=== PATIENT | male | born 1990 | race Caucasian/White ===

== ENCOUNTER 2017-08-31 15:25 | Inpatient (IN) | payer OTHER ==
[2017-08-31 16:06] VITALS: BMI 27.3
--- NOTE | 2017-08-31 20:34 | HP ---
COWS - Scale Resting Pulse: 1= [place] 81-100 Sweatin=Flushed/Facial Moisture Restless Observation: 5= Unable to Sit Still Pupil Size: 1= Pupils >than Normal Bone or Joint Aches: 4=Acute Joint/Muscle Pain Runny Nose/ Eye Tearin= Nasal Congestion GI Upset > 30mins: 0= None Tremor Observation: 2= Slight Tremor Visible Yawning Observation: 0= None Anxiety or Irritability: 4=Extreme Anxiety Goose Flesh Skin: 0=Smooth Skin COWS Score: 20 Admission ROS S - HPI Chief Complaint: C/O WITHDRAWAL SX'S. SEEKING DETOX TXMENT Allergies/Adverse Reactions: Allergies Allergy/AdvReac Type Severity Reaction Status Date / Time haloperidol [From Haldol] Allergy Severe Difficulty Verified 08/31/17 16:32 Breathing haloperidol lactate Allergy Severe Difficulty Verified 08/31/17 16:32 [From Haldol] Breathing olanzapine [From Zyprexa] Allergy Severe Verified 08/31/17 17:03 Shellfish Allergy Severe Itching Verified 08/31/17 16:32 nicotine [From Nicoderm] Allergy Mild Itching Verified 08/31/17 16:32 Nicotine Patch Allergy Mild Itching Uncoded 08/31/17 16:32 History of Present Illness: 27 Y.O. MALE WITH OPIOID DEPENDENCE HERE FOR DETOX. CLIENT IS KNOWN TO THIS PROGRAM. REFERRED BY LEGAL. REPORTS LONGEST CLEAN TIME 1 YEAR. Exam Limitations: No Limitations - Ebola screening Have you traveled outside of the country in the last 21 days: No Have you had contact with anyone from an Ebola affected area: No Have you been sick,other than usual withdrawal symptoms: No Do you have a fever: No - Review of Systems Constitutional: Chills, Loss of Appetite, Malaise, Night Sweats, Changes in sleep EENT: reports: Nose Congestion, Dental Problems (UNDERBITE) Respiratory: reports: No Symptoms reported Cardiac: reports: No Symptoms Reported GI: reports: No Symptoms Reported : reports: No Symptoms Reported Musculoskeletal: reports: Back Pain Integumentary: reports: Lesions (TO LEGS) Neuro: reports: No Symptoms reported Endocrine: reports: No Symptoms Reported Hematology: reports: No Symptoms Reported Psychiatric: reports: Anxious, Depressed Other Systems: Reviewed and Negative Patient History - Patient Medical History Hx Anemia: No Hx Asthma: No Hx Chronic Obstructive Pulmonary Disease (COPD): No Hx Cancer: No Hx Cardiac Disorders: No Hx Congestive Heart Failure: No Hx Hypertension: No Hx Hypercholesterolemia: No Hx Pacemaker: No HX Cerebrovascular Accident: No Hx Seizures: No Hx Dementia: No Hx Diabetes: No Hx Gastrointestinal Disorders: No Hx Liver Disease: No Hx Genitourinary Disorders: No Hx Sexually Transmitted Disorders: No Hx Renal Disease (ESRD): No Hx Thyroid Disease: No Hx Human Immunodeficiency Virus (HIV): No Hx Hepatitis C: No Hx Depression: Yes (DENIES SI/HI) Hx Suicide Attempt: No Hx Bipolar Disorder: No Hx Schizophrenia: No Other Medical History: DENIES - Patient Surgical History Past Surgical History: No Hx Neurologic Surgery: No Hx Cataract Extraction: No Hx Cardiac Surgery: No Hx Lung Surgery: No Hx Breast Surgery: No Hx Breast Biopsy: No Hx Abdominal Surgery: No Hx Appendectomy: No Hx Cholecystectomy: No Hx Genitourinary Surgery: No Hx Section: No Hx Orthopedic Surgery: No Anesthesia Reaction: No - PPD History Previous Implant?: Yes Documented Results: Negative w/o proof Implanted On Prior [facility] Admission?: Yes Date: 03/03/13 PPD to be Administered?: Yes - Smoking Cessation Smoking history: Current every day smoker Have you smoked in the past 12 months: Yes Aproximately how many cigarettes per day: 20 Cigars Per Day: 0 Hx Chewing Tobacco Use: No Initiated information on smoking cessation: Yes 'Breaking Loose' booklet given: 08/31/17 - Substance & Tx. History Hx Alcohol Use: No Hx Substance Use: Yes Substance Use Type: Heroin Hx Substance Use Treatment: Yes ([facility]) - Substances Abused Heroin Route: Inhalation Frequency: Daily Amount used: 10 bags Age of first use: 20 Date of Last Use: 08/31/17 Marijuana/Hashish Route: Smoking Frequency: 1-2 times per week Amount used: 1 blunt Age of first use: 15 Date of Last Use: 08/24/17 Family Disease History - Family Disease History Family History: Denies Family Disease History: Heart Disease: Father, Other: Mother (ANXIETY, DEPRESSION) Admission Physical Exam BHS - Vital Signs Vital Signs: Vital Signs - 24 hr 08/31/17 15:50 Temperature 96.4 F L Pulse Rate 90 Respiratory 20 Rate Blood Pressure 139/79 - Physical General Appearance: Yes: Appropriately Dressed, Mild Distress, Tremorous, Anxious HEENTM: Yes: EOMI, Normocephalic, BART[place]O, Pharynx Normal, Nasal Congestion, Other (DIALTED PUPILS) Respiratory: Yes: Chest Non-Tender, Lungs Clear, Normal Breath Sounds, No Respiratory Distress, No Accessory Muscle Use Neck: Yes: No masses,lesions,Nodules, Supple, Trachea in good position Breast: Yes: Breast Exam Deferred Cardiology: Yes: Regular Rhythm, S1, S2, Tachycardia Abdominal: Yes: Normal Bowel Sounds, Non Tender, Soft Genitourinary: Yes: Within Normal Limits Back: Yes: Normal Inspection Musculoskeletal: Yes: full range of Motion, Gait Steady Extremities: Yes: Normal Capillary Refill, Normal Range of Motion, Non-Tender, Tremors Neurological: Yes: nurse sane II-XII NML intact, Fully Oriented, Alert, Motor Strength 5/5 Integumentary: Yes: Normal Color, Warm, Moist Lymphatic: Yes: Within Normal Limits - Diagnostic (1) Opioid dependence with withdrawal Current Visit: Yes Status: Chronic (2) Nicotine dependence Current Visit: Yes Status: Chronic Qualifiers: Nicotine product type: cigarettes Substance use status: uncomplicated Qualified Code(s): F17.210 - Nicotine dependence, cigarettes, uncomplicated Cleared for Admission [facility] - Detox or Rehab [facility] Level of Care: Medically Managed Detox Regimen/Protocol: Methadone [facility] Breath Alcohol Content Breath Alcohol Content: 0 Urine Drug Screen - Results Drug Screen Negative: No Urine Drug Screen Results: THC-Marijuana, OPI-Opiates, AMP-Amphetamines, MET- Methamphetamine, OXY-Oxycodone
[2017-08-31] MEDS ORDERED: P-EPHED 60MG/TRIPROLIDI 2.5MG TABLET PO PRN (20:41)
[2017-08-31] MEDS ORDERED: LOPERAMIDE HCL 2 MG CAPSULE PO PRN (20:41)
[2017-08-31] MEDS ORDERED: MAG HYDROX/AL HYDROX/SIMETH 30 ML UNIT-DOSE CUP PO PRN (20:41)
[2017-08-31] MEDS ORDERED: MAGNESIUM CITRATE 300 ML BOTTLE PO PRN (20:41)
[2017-08-31] MEDS ORDERED: guaiFENesin/D-METHORPHAN HB 10 ML UNIT-DOSE CUPS PO PRN (20:41)
[2017-08-31] MEDS ORDERED: MENTHOL/PHENOL 1 EACH UD MM PRN (20:41)
[2017-08-31] MEDS ORDERED: ACETAMINOPHEN 325 MG TABLET (FP) PO PRN (20:41)
[2017-08-31] MEDS ORDERED: METHADONE HCL 10 MG TABLET (FOR DETOX USE ONLY) PO ONE ×2 (20:41→23:00)
[2017-08-31] MEDS ORDERED: MAGNESIUM HYDROX 2400MG/30ML ORAL SUSPENSION 30 ML CUP PO PRN (20:41)
[2017-08-31] MEDS ORDERED: hydrOXYzine PAMOATE 50 MG CAPSULE (FP) PO PRN (20:41)
[2017-08-31] MEDS ORDERED: IBUPROFEN 400 MG TABLET (FP) PO PRN (20:41)
[2017-08-31] MEDS: THIAMINE HCL 100 MG TABLET (FP) PO SCH (21:53)
[2017-08-31] MEDS: diazePAM 5 MG TABLET PO PRN (21:54)
[2017-08-31] MEDS ORDERED: QUEtiapine FUMARATE 100 MG TABLET (FP) PO ONE (23:00)
[2017-09-01 03:53] LABS: URINE APPEARANCE CLEAR; URINE BILIRUBIN NEGATIVE (NEGATIVE); URINE BLOOD NEGATIVE (NEGATIVE); URINE COLOR YELLOW; URINE GLUCOSE (UA) NEGATIVE (NEGATIVE); URINE KETONE NEGATIVE (NEGATIVE); URINE LEUK ESTERASE NEGATIVE (NEGATIVE); URINE NITRITE NEGATIVE (NEGATIVE); URINE PROTEIN NEGATIVE (NEGATIVE); URINE UROBILINOGEN NEGATIVE mg/dL (0.2-1.0)
[2017-09-01] MEDS ORDERED: METHADONE HCL 10 MG TABLET (FOR DETOX USE ONLY) PO ONE (10:00)
[2017-09-01] MEDS: PRENATAL VITAMINS W/ FOLIC ACID TABLET (FP) PO SCH (10:01)
[2017-09-01] MEDS: diazePAM 5 MG TABLET PO PRN ×2 (10:01→22:11)
[2017-09-01 10:16] LABS: HEMATOCRIT 40.5 % (35.4-49); MCH 27.9 pg (25.7-33.7); MCHC 32.2 g/dl (32.0-35.9); MEAN CELL VOLUME 86.5 fl (80-96); MEAN PLT VOLUME 8.9 fl (7.5-11.1); PLATELET COUNT 236 K/MM3 (134-434); RBC 4.68 M/mm3 (4.00-5.60); RDW 14.9 % (11.9-15.9); WHITE BLOOD COUNT 13.5 K/mm3 (4.0-10.0)
[2017-09-01 10:22] LABS: CHLORIDE 102 mmol/L (98-107); POTASSIUM 3.5 mmol/L (3.5-5.1); SODIUM 138 mmol/L (136-145)
[2017-09-01 10:42] LABS: ALBUMIN 3.3 g/dl (3.4-5.0); ALK PHOS 90 U/L (45-117); ANION GAP 9 (8-16); BILIRUBIN,TOTAL 0.4 mg/dL (0.2-1.0); BLOOD UREA NITROGEN 14 mg/dL (7-18); CALCIUM 8.2 mg/dL (8.5-10.1); CO2 27 mmol/L (21-32); CREATININE 0.8 mg/dL (0.7-1.3); GLUCOSE,RANDOM 83 mg/dL (74-106); SGOT/AST 10 U/L (15-37); SGPT/ALT 16 U/L (12-78); TOT PROT 6.2 g/dl (6.4-8.2)
--- NOTE | 2017-09-01 11:26 | EKG ---
Test Reason : Blood Pressure : / mmHG Vent. Rate : 077 BPM Atrial Rate : 077 BPM P-R Int : 128 ms QRS Dur : 086 ms QT Int : 398 ms P-R-T Axes : 051 040 053 degrees QTc Int : 450 ms NORMAL SINUS RHYTHM NORMAL ECG NO PREVIOUS ECGS AVAILABLE BASELINE ARTIFACT Confirmed by RIOS TALBERT, DAVI ([id number]) on 09/01/2017 11:26:19 AM Referred By: Confirmed By:DAVI NATION MD
[2017-09-01] MEDS ORDERED: FLU VACCINE QUAD 60 MCG/0.5 ML (MDV 17-18) IM ONE (12:00)
[2017-09-01] MEDS: BACITRACIN 15 GM TUBE TOPICAL OINTMENT TP SCH ×2 (12:59→22:12)
--- NOTE | 2017-09-01 13:50 | CONSULT ---
[facility] Psychiatric Consult - Data Date of interview: 09/01/17 Admission source: [facility] Identifying data: Readmission to [facility] for this 27 y/o male seeking detox treatment on for heroin and marihuana dependence.Patient is single without chidren,domiciled (lives with his mother),unemployed and supported on SSI benefits. Substance Abuse History: Confirmed by patient in this session.Refer to current [facility] report for details : Smoking history: Current every day smoker. Have you smoked in the past 12 months: Yes. Aproximately how many cigarettes per day: 20. Cigars Per Day: 0. Hx Chewing Tobacco Use: No. Initiated information on smoking cessation: Yes. 'Breaking Loose' booklet given: 08/31/17. - Substance & Tx. History. Hx Alcohol Use: No. Hx Substance Use: Yes. Substance Use Type : Heroin. Hx Substance Use Treatment: Yes ([facility]). - Substances Abused. Heroin. Route: Inhalation. Frequency: Daily. Amount used: 10 bags. Age of first use: 20. Date of Last Use: 08/31/17. Marijuana/Hashish. Route: Smoking. Frequency: 1-2 times per week. Amount used: 1 blunt. Age of first use: 15. Date of Last Use: 08/24/17 Medical History: Patient endorses good general health. Psychiatric History: Patient admits to a history of multiple psychiatric hospitalizations since adolescence.Diagnosed with KURT,ADD and Schizoaffective Disorder as per self-report.Known to [facility] and [facility].Mr Puentes informs that he is currently followed at [facility] in [facility].Reportedly prescribed a combination of adderall,clonazepam,depakote,seroquel and enderal ( doses not recalled).Patient indicates also that he gets a monthly injection of invega (date of last injection : unknown).No reported history of suicide attempts. Physical/Sexual Abuse/Trauma History: Patient denies. Additional Comment: Urine Drug Screen Results: THC-Marijuana, OPI-Opiates, AMP- Amphetamines, MET-Methamphetamine, OXY-Oxycodone.Noted. Mental Status Exam - Mental Status Exam Alert and Oriented to: Time, Place, Person Cognitive Function: Good Patient Appearance: Well Groomed Mood: Withdrawn, Hopeful Affect: Appropriate, Normal Range Patient Behavior: Fatigued, Cooperative Speech Pattern: Clear, Appropriate Voice Loudness: Normal Thought Process: Goal Oriented Thought Disorder: Not Present Hallucinations: Denies Suicidal Ideation: Denies Homicidal Ideation: Denies Insight/Judgement: Poor Sleep: Poorly, Difficulty falling asleep Appetite: Good Muscle strength/Tone: Normal Gait/Station: Normal Psychiatric Findings - Problem List ([place] 1, 2,3) (1) Opioid dependence with withdrawal Current Visit: Yes Status: Acute (2) Nicotine dependence Current Visit: Yes Status: Acute Qualifiers: Nicotine product type: cigarettes Substance use status: uncomplicated Qualified Code(s): F17.210 - Nicotine dependence, cigarettes, uncomplicated (3) Schizoaffective disorder Current Visit: No Status: Chronic Comment: Self-report.Questionable adherence to medications.Limited historian.Followed at [facility] in [facility]. (4) ADD (attention deficit disorder) Current Visit: Yes Status: Chronic Comment: As per self-report. (5) Insomnia Current Visit: Yes Status: Active - Initial Treatment Plan Initial Treatment Plan: Psychoeducation.Support.Detoxification in progress.Sleep hygiene discussed.Psychostimulant medication held (to be resumed after discharge from this service).Seroquel 100 mg po hs.Side effects/benefits discussed with the patient.He expressed his agreement with this careplan.Observation.Medications checked via survey of recent pharmacy claims : no recent scripts for depakote (last refill was issued on 06/08/17) ; confirmed refills for amphetamine ER 30 mg/day + enderal 10 mg po bid + seroquel 100 mg/ hs on 08/21/17 at [facility].
--- NOTE | 2017-09-01 14:40 | PN ---
BHS COWS - Scale Resting Pulse: 0= [place] 80 or Below Sweatin= Chills/Flushing Restless Observation: 1= Difficult to Sit Still Pupil Size: 0= Normal to Room Light Bone or Joint Aches: 2= Severe Diffuse Aches Runny Nose/ Eye Tearin= None GI Upset > 30mins: 0= None Tremor Observation of Outstretched Hands: 2= Slight Tremor Visible Yawning Observation: 1= 1-2x During Session Anxiety or Irritability: 2=Irritable/Anxious Goose Flesh Skin: 3=Piloerection COWS Score: 12 BHS Progress Note (SOAP) Subjective: Anxious, Tremors, Fatigue, Constipation. Patient reporting small lesion on lower abdomen X approx. 1 week. Patient reports that area feels itchy and that he has "squeezed pus and blood from it." Objective: PT. A & O X 3, OBSERVED AMBULATING ON UNIT. NO ACUTE DISTRESS. SMALL AREA OF DARKENED SKIN DISCOLORATION NOTED ON LOWER ABDOMEN. NO SWELLING, ERYTHEMA, BLEEDING OR UNUSUAL DISCHARGE NOTED AT SITE. 09/01/17 14:36 Vital Signs Temperature 97.3 F L 09/01/17 13:52 Pulse Rate 77 09/01/17 13:52 Respiratory Rate 19 09/01/17 13:52 Blood Pressure 109/57 09/01/17 13:52 O2 Sat by Pulse Oximetry (%) Laboratory Tests 08/31/17 09/01/17 09/01/17 23:33 08:00 08:00 WBC 13.5 H D RBC 4.68 Hgb 13.0 Hct 40.5 MCV 86.5 MCH 27.9 MCHC 32.2 RDW 14.9 Plt Count 236 D MPV 8.9 Sodium 138 Potassium 3.5 Chloride 102 Carbon Dioxide 27 Anion Gap 9 BUN 14 Creatinine 0.8 Creat Clearance w eGFR > 60 Random Glucose 83 Calcium 8.2 L Total Bilirubin 0.4 AST 10 L D ALT 16 Alkaline Phosphatase 90 Total Protein 6.2 L Albumin 3.3 L Urine Color Yellow Urine Appearance Clear Urine pH 5.0 Ur Specific [place] 1.026 Urine Protein Negative Urine Glucose (UA) Negative Urine Ketones Negative Urine Blood Negative Urine Nitrite Negative Urine Bilirubin Negative Urine Urobilinogen Negative Ur Leukocyte Esterase Negative RPR Titer 09/01/17 08:00 WBC RBC Hgb Hct MCV MCH MCHC RDW Plt Count MPV Sodium Potassium Chloride Carbon Dioxide Anion Gap BUN Creatinine Creat Clearance w eGFR Random Glucose Calcium Total Bilirubin AST ALT Alkaline Phosphatase Total Protein Albumin Urine Color Urine Appearance Urine pH Ur Specific [place] Urine Protein Urine Glucose (UA) Urine Ketones Urine Blood Urine Nitrite Urine Bilirubin Urine Urobilinogen Ur Leukocyte Esterase RPR Titer Nonreactive LABS NOTED. HCV AB RESULT PENDING. 09/01/17 14:38 Assessment: 09/01/17 14:39 WITHDRAWAL SYMPTOMS. Plan: CONTINUE DETOX. BACITRACIN TO BE APPLIED TO AFFECTED AREA ON LOWER ABDOMEN BID. PATIENT ADVISED TO AVOID TOUCHING AREA MUCH POSSIBLE FOR THE TIME BEING. INCREASE DAILY PO FLUID INTAKE.
[2017-09-01] MEDS: THIAMINE HCL 100 MG TABLET (FP) PO SCH (22:10)
[2017-09-01] MEDS: QUEtiapine FUMARATE 100 MG TABLET (FP) PO SCH (22:12)
[2017-09-02] MEDS ORDERED: METHADONE HCL 5 MG TABLET (FOR DETOX USE ONLY) PO ONE (10:00)
[2017-09-02] MEDS: diazePAM 5 MG TABLET PO PRN ×2 (10:23→22:15)
[2017-09-02] MEDS: PRENATAL VITAMINS W/ FOLIC ACID TABLET (FP) PO SCH (10:23)
[2017-09-02] MEDS: BACITRACIN 15 GM TUBE TOPICAL OINTMENT TP SCH ×2 (10:28→22:12)
--- NOTE | 2017-09-02 14:22 | PN ---
BHS COWS - Scale Resting Pulse: 0= [place] 80 or Below Sweatin= Beads of Sweat on Face Restless Observation: 3= Extraneous Movement Pupil Size: 0= Normal to Room Light Bone or Joint Aches: 2= Severe Diffuse Aches Runny Nose/ Eye Tearin= Runny Nose/Eyes GI Upset > 30mins: 1= Stomach Cramp Tremor Observation of Outstretched Hands: 2= Slight Tremor Visible Yawning Observation: 1= 1-2x During Session Anxiety or Irritability: 2=Irritable/Anxious Goose Flesh Skin: 0=Smooth Skin COWS Score: 16 BHS Progress Note (SOAP) Subjective: Back pain, headache, chills, constipated (last bm 2 days ago, patient instructed to notify nurse) Objective: 09/02/17 14:12 Last Vital Signs Temp Pulse Resp BP Pulse Ox 97.8 F 72 18 111/60 09/02/17 13:20 09/02/17 13:20 09/02/17 13:20 09/02/17 13:20 Laboratory Tests 08/31/17 09/01/17 09/01/17 23:33 08:00 08:00 WBC 13.5 H D RBC 4.68 Hgb 13.0 Hct 40.5 MCV 86.5 MCH 27.9 MCHC 32.2 RDW 14.9 Plt Count 236 D MPV 8.9 Sodium Potassium Chloride Carbon Dioxide Anion Gap BUN Creatinine Creat Clearance w eGFR Random Glucose Calcium Total Bilirubin AST ALT Alkaline Phosphatase Total Protein Albumin Urine Color Yellow Urine Appearance Clear Urine pH 5.0 Ur Specific [place] 1.026 Urine Protein Negative Urine Glucose (UA) Negative Urine Ketones Negative Urine Blood Negative Urine Nitrite Negative Urine Bilirubin Negative Urine Urobilinogen Negative Ur Leukocyte Esterase Negative Valproic Acid RPR Titer Hepatitis C Antibody 0.2 09/01/17 09/01/17 09/02/17 08:00 08:00 07:45 WBC RBC Hgb Hct MCV MCH MCHC RDW Plt Count MPV Sodium 138 Potassium 3.5 Chloride 102 Carbon Dioxide 27 Anion Gap 9 BUN 14 Creatinine 0.8 Creat Clearance w eGFR > 60 Random Glucose 83 Calcium 8.2 L Total Bilirubin 0.4 AST 10 L D ALT 16 Alkaline Phosphatase 90 Total Protein 6.2 L Albumin 3.3 L Urine Color Urine Appearance Urine pH Ur Specific [place] Urine Protein Urine Glucose (UA) Urine Ketones Urine Blood Urine Nitrite Urine Bilirubin Urine Urobilinogen Ur Leukocyte Esterase Valproic Acid 3.383 L RPR Titer Nonreactive Hepatitis C Antibody Labs noted: wbc 13.5 Assessment: 09/02/17 14:22 Withdrawal symptoms Noted with leukocytosis Plan: Continue detox Encouraged to drink lots of water Leukocytosis, acute: asymptomatic for infection, repeat CBC
[2017-09-02] MEDS: THIAMINE HCL 100 MG TABLET (FP) PO SCH (22:12)
[2017-09-02] MEDS: QUEtiapine FUMARATE 100 MG TABLET (FP) PO SCH (22:13)
[2017-09-03] MEDS: BACITRACIN 15 GM TUBE TOPICAL OINTMENT TP SCH (09:41)
[2017-09-03] MEDS: PRENATAL VITAMINS W/ FOLIC ACID TABLET (FP) PO SCH (09:41)
[2017-09-03] MEDS: diazePAM 5 MG TABLET PO PRN (09:41)
[2017-09-03] MEDS ORDERED: METHADONE HCL 5 MG TABLET (FOR DETOX USE ONLY) PO ONE (10:00)
[2017-09-03 12:03] LABS: BASO % 0.5 % (0-2.0); EOS % 3.8 % (0-4.5); HEMATOCRIT 41.4 % (35.4-49); HEMOGLOBIN 13.3 GM/dL (11.7-16.9); LYMPH % 30.7 % (8-40); MCHC 32.3 g/dl (32.0-35.9); MEAN CELL VOLUME 86.9 fl (80-96); MEAN PLT VOLUME 8.9 fl (7.5-11.1); MONO % 10.3 % (3.8-10.2); NEUT % 54.7 % (42.8-82.8); PLATELET COUNT 227 K/MM3 (134-434); RBC 4.76 M/mm3 (4.00-5.60); RDW 14.6 % (11.9-15.9); WHITE BLOOD COUNT 8.9 K/mm3 (4.0-10.0)
--- NOTE | 2017-09-03 13:31 | DS ---
[facility] Detox Discharge Summary Admission Date: 08/31/17 Discharge Date: 09/03/17 - History Present History: Opioid Dependence Additional Comments: DECLINED TO COMPLETE DETOX. STATES HE WANTS TO BE WITH HIS FAMILY. Pertinent Past History: ADHD HX - Physical Exam Results Vital Signs: Vital Signs Temperature 97.5 F L 09/03/17 09:27 Pulse Rate 75 09/03/17 09:27 Respiratory Rate 18 09/03/17 09:27 Blood Pressure 99/58 09/03/17 09:27 O2 Sat by Pulse Oximetry (%) Pertinent Admission Physical Exam Findings: WITHDRAWAL SX Laboratory Last Values WBC 8.9 K/mm3 (4.0-10.0) D 09/03/17 07:50 RBC 4.76 M/mm3 (4.00-5.60) 09/03/17 07:50 Hgb 13.3 GM/dL (11.7-16.9) 09/03/17 07:50 Hct 41.4 % (35.4-49) 09/03/17 07:50 MCV 86.9 fl (80-96) 09/03/17 07:50 MCH 28.0 pg (25.7-33.7) 09/03/17 07:50 MCHC 32.3 g/dl (32.0-35.9) 09/03/17 07:50 RDW 14.6 % (11.9-15.9) 09/03/17 07:50 Plt Count 227 K/MM3 (134-434) 09/03/17 07:50 MPV 8.9 fl (7.5-11.1) 09/03/17 07:50 Neutrophils % 54.7 % (42.8-82.8) 09/03/17 07:50 Lymphocytes % 30.7 % (8-40) 09/03/17 07:50 Monocytes % 10.3 % (3.8-10.2) H 09/03/17 07:50 Eosinophils % 3.8 % (0-4.5) 09/03/17 07:50 Basophils % 0.5 % (0-2.0) 09/03/17 07:50 Sodium 138 mmol/L (136-145) 09/01/17 08:00 Potassium 3.5 mmol/L (3.5-5.1) 09/01/17 08:00 Chloride 102 mmol/L (98-107) 09/01/17 08:00 Carbon Dioxide 27 mmol/L (21-32) 09/01/17 08:00 Anion Gap 9 (8-16) 09/01/17 08:00 BUN 14 mg/dL (7-18) 09/01/17 08:00 Creatinine 0.8 mg/dL (0.7-1.3) 09/01/17 08:00 Creat Clearance w eGFR > 60 (>60) 09/01/17 08:00 Random Glucose 83 mg/dL (74-106) 09/01/17 08:00 Calcium 8.2 mg/dL (8.5-10.1) L 09/01/17 08:00 Total Bilirubin 0.4 mg/dL (0.2-1.0) 09/01/17 08:00 AST 10 U/L (15-37) L D 09/01/17 08:00 ALT 16 U/L (12-78) 09/01/17 08:00 Alkaline Phosphatase 90 U/L (45-117) 09/01/17 08:00 Total Protein 6.2 g/dl (6.4-8.2) L 09/01/17 08:00 Albumin 3.3 g/dl (3.4-5.0) L 09/01/17 08:00 Urine Color Yellow 08/31/17 23:33 Urine Appearance Clear 08/31/17 23:33 Urine pH 5.0 (5.0-8.0) 08/31/17 23:33 Ur Specific [place] 1.026 (1.001-1.035) 08/31/17 23: Urine Protein Negative (NEGATIVE) 08/31/17 23:33 Urine Glucose (UA) Negative (NEGATIVE) 08/31/17 23:33 Urine Ketones Negative (NEGATIVE) 08/31/17 23: Urine Blood Negative (NEGATIVE) 08/31/17 23: Urine Nitrite Negative (NEGATIVE) 08/31/17 23: Urine Bilirubin Negative (NEGATIVE) 08/31/17 23: Urine Urobilinogen Negative mg/dL (0.2-1.0) 08/31/17 23: Ur Leukocyte Esterase Negative (NEGATIVE) 08/31/17 23: Valproic Acid 3.383 ug/ml (50-100) L 09/02/17 07:45 RPR Titer Nonreactive (NONREACTIVE) 09/01/17 08:00 Hepatitis C Antibody 0.2 s/co ratio (0.0-0.9) 09/01/17 08:00 - Treatment Hospital Course: Discharged Condition Good - Medication Discharge Medications: Ambulatory Orders Clonazepam [Klonopin] 1 mg PO DAILY 10/03/11 Dextroamphetamine/Amphetamine [Adderall Xr 30 mg Capsule] 30 mg PO DAILY Propranolol HCl 10 mg PO BID 08/31/17 Quetiapine Fumarate [Seroquel -] 200 mg PO BID 08/31/17 - Diagnosis (1) Opioid dependence with withdrawal Status: Acute (2) Nicotine dependence Status: Acute Qualifiers: Nicotine product type: cigarettes Substance use status: in withdrawal Qualified Code(s): F17.213 - Nicotine dependence, cigarettes, with withdrawal (3) Cannabis dependence Status: Acute - AMA Did Patient Leave Against Medical Advice: Yes (AMA)
[2017-09-03 13:51] VITALS: BP 110/65; PULSE 66; TEMP 97.4
[2017-09-04] MEDS ORDERED: METHADONE HCL 10 MG TABLET (FOR DETOX USE ONLY) PO ONE (10:00)
[2017-09-05] MEDS ORDERED: METHADONE HCL 5 MG TABLET (FOR DETOX USE ONLY) PO ONE (06:00)
== END 2017-09-03 14:00 | disposition left against medical advice (07) | DRG 770 ==
LOC: YASAS 15:25 → Y3N 17:54
PROVIDERS: ADMIT Internal Medicine; ATTEND Internal Medicine
PROC: HZ2ZZZZ Detoxification Services for Substance Abuse Treatment (ICD-10-PCS; principal; 2017-08-31)
DX: F11.23 Opioid dependence with withdrawal (principal); F12.20 Cannabis dependence, uncomplicated; F17.210 Nicotine dependence, cigarettes, uncomplicated; F32.9 Major depressive disorder, single episode, unspecified; F25.9 Schizoaffective disorder, unspecified; F90.9 Attention-deficit hyperactivity disorder, unspecified type; R00.0 Tachycardia, unspecified; L98.9 Disorder of the skin and subcutaneous tissue, unspecified; G47.00 Insomnia, unspecified; Z88.8 Allergy status to other drugs, medicaments and biological substances; Z91.013 Allergy to seafood
CPT/HCPCS: 36415; 80053; 80164; 81003; 85025; 85027; 86593; 86803; 90688; 93005; 93010; G0008

== ENCOUNTER 2017-10-25 12:37 | Inpatient (IN) | payer OTHER ==
[2017-10-25 16:58] VITALS: BMI 26.9
--- NOTE | 2017-10-25 17:42 | HP ---
COWS - Scale Resting Pulse: 1= [place] 81-100 Sweatin=Flushed/Facial Moisture Restless Observation: 3= Extraneous Movement Pupil Size: 1= Pupils >than Normal Bone or Joint Aches: 1= Mild Discomfort Runny Nose/ Eye Tearin= Runny Nose/Eyes GI Upset > 30mins: 3= Vomiting/Diarrhea Tremor Observation: 2= Slight Tremor Visible Yawning Observation: 1= 1-2x During Session Anxiety or Irritability: 1=Feels Anxious/Irritable Goose Flesh Skin: 3=Piloerection COWS Score: 20 Admission ROS S - HPI Chief Complaint: "I don't feel well from the Dope, even if I use it I still dont feel well , I am here to detox. Everything is going down hill." Allergies/Adverse Reactions: Allergies Allergy/AdvReac Type Severity Reaction Status Date / Time haloperidol [From Haldol] Allergy Severe Difficulty Verified 08/31/17 16:32 Breathing haloperidol lactate Allergy Severe Difficulty Verified 08/31/17 16:32 [From Haldol] Breathing olanzapine [From Zyprexa] Allergy Severe Verified 08/31/17 17:03 Shellfish Allergy Severe Itching Verified 08/31/17 16:32 nicotine [From Nicoderm] Allergy Mild Itching Verified 08/31/17 16:32 Nicotine Patch Allergy Mild Itching Uncoded 08/31/17 16:32 History of Present Illness: 27 yo male with hx of heroin, marijuana and nicotine dependence is here seeking detox. Past medical hx : schizo-affective d/o, denies any other significant healht hx. Denies suicidal / homicidal ideation or suicide attempts. Last detox 08/31/17 -09/03/2017 at [facility]. Denies any significant period of sobriety. Reports hx of OD in the past unable specify date and admitted to the ICU. Denies any seizures, - Ebola screening Have you traveled outside of the country in the last 21 days: No Have you had contact with anyone from an Ebola affected area: No Have you been sick,other than usual withdrawal symptoms: No Do you have a fever: No - Review of Systems Constitutional: Chills, Loss of Appetite, Changes in sleep, Weakness, Unintentional Wgt. Loss (loss 20lbs) EENT: reports: Nose Congestion Respiratory: reports: No Symptoms reported Cardiac: reports: No Symptoms Reported GI: reports: Diarrhea, Nausea, Poor Appetite, Poor Fluid Intake, Vomiting : reports: No Symptoms Reported Musculoskeletal: reports: Back Pain, Joint Pain Integumentary: reports: Pruritus Endocrine: reports: Change in Weight Hematology: reports: No Symptoms Reported Psychiatric: reports: Orientated x3, Anxious Other Systems: Reviewed and Negative Patient History - Patient Medical History Hx Anemia: No Hx Asthma: No Hx Chronic Obstructive Pulmonary Disease (COPD): No Hx Cancer: No Hx Cardiac Disorders: No Hx Congestive Heart Failure: No Hx Hypertension: No Hx Hypercholesterolemia: No Hx Pacemaker: No HX Cerebrovascular Accident: No Hx Seizures: No Hx Dementia: No Hx Diabetes: No Hx Gastrointestinal Disorders: No Hx Liver Disease: No Hx Genitourinary Disorders: No Hx Sexually Transmitted Disorders: No Hx Renal Disease (ESRD): No Hx Thyroid Disease: No Hx Human Immunodeficiency Virus (HIV): No Hx Hepatitis C: No Hx Depression: Yes (DENIES SI/HI) Hx Suicide Attempt: No Hx Bipolar Disorder: No Hx Schizophrenia: No - Patient Surgical History Past Surgical History: No Hx Neurologic Surgery: No Hx Cataract Extraction: No Hx Cardiac Surgery: No Hx Lung Surgery: No Hx Breast Surgery: No Hx Breast Biopsy: No Hx Abdominal Surgery: No Hx Appendectomy: No Hx Cholecystectomy: No Hx Genitourinary Surgery: No Hx Section: No Hx Orthopedic Surgery: No Anesthesia Reaction: No - PPD History Previous Implant?: Yes Documented Results: Negative w/proof Date: 09/02/17 PPD to be Administered?: No - Reproductive History Patient is a Female of Child Bearing Age (11 -55 yrs old): No - Smoking Cessation Smoking history: Current every day smoker Have you smoked in the past 12 months: Yes Aproximately how many cigarettes per day: 20 Cigars Per Day: 0 Hx Chewing Tobacco Use: No Initiated information on smoking cessation: Yes 'Breaking Loose' booklet given: 10/25/17 - Substance & Tx. History Hx Alcohol Use: No Hx Substance Use: Yes Substance Use Type: Heroin, Marijuana Hx Substance Use Treatment: Yes ([facility] 08/31/17 - 09/03/17) - Substances Abused Heroin Route: Inhalation Frequency: Daily Amount used: 1 .5 bundles Age of first use: 25 Date of Last Use: 10/25/17 Family Disease History - Family Disease History Family Disease History: Heart Disease: Father, Other: Mother (ANXIETY, DEPRESSION) Admission Physical Exam [facility] - Vital Signs Vital Signs: Vital Signs - 24 hr 10/25/17 16:57 Temperature 96.8 F L Pulse Rate 84 Respiratory 18 Rate Blood Pressure 122/70 - Physical General Appearance: Yes: Mild Distress, Anxious HEENTM: Yes: EOMI, Hearing grossly Normal, Normal ENT Inspection, Normocephalic , Normal Voice, BARTOLO, Pharynx Normal, Tm's normal Respiratory: Yes: Within Normal Limits, Chest Non-Tender, Lungs Clear, Normal Breath Sounds, No Respiratory Distress, No Accessory Muscle Use Neck: Yes: No masses,lesions,Nodules, Trachea in good position Breast: Yes: Within Normal Limits, Axillae without masses, Breasts Symetrical, No Discharge, No masses Cardiology: Yes: Within Normal Limits, Regular Rhythm, Regular Rate, S1, S2 Abdominal: Yes: Normal Bowel Sounds, Non Tender Genitourinary: Yes: Within Normal Limits Back: Yes: Normal Inspection Musculoskeletal: Yes: full range of Motion, Gait Steady, Pelvis Stable Extremities: Yes: Normal Capillary Refill, Normal Inspection 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, Fully Oriented, Alert, Motor Strength 5/5, Normal Mood/Affect, Normal Response Integumentary: Yes: Normal Color, Dry, Warm Lymphatic: Yes: Within Normal Limits - Diagnostic (1) Nicotine dependence Current Visit: Yes Status: Acute Qualifiers: Nicotine product type: cigarettes Substance use status: in withdrawal Qualified Code(s): F17.213 - Nicotine dependence, cigarettes, with withdrawal (2) Opioid dependence with withdrawal Current Visit: Yes Status: Acute (3) ADD (attention deficit disorder) Current Visit: No Status: Chronic Qualifiers: Hyperactivity presence: unspecified Qualified Code(s): F98.8 - Other specified behavioral and emotional disorders with onset usually occurring in childhood and adolescence Comment: As per self-report. (4) Difficulty sleeping Current Visit: Yes Status: Acute [facility] Breath Alcohol Content Breath Alcohol Content: 0 Urine Drug Screen - Results Drug Screen Negative: No Urine Drug Screen Results: OPI-Opiates, AMP-Amphetamines, MET-Methamphetamine, TCA-Tricyclic Antidepress, OXY-Oxycodone
[2017-10-25] MEDS ORDERED: ACETAMINOPHEN 325 MG TABLET (FP) PO PRN (18:04)
[2017-10-25] MEDS ORDERED: MAG HYDROX/AL HYDROX/SIMETH 30 ML UNIT-DOSE CUP PO PRN (18:04)
[2017-10-25] MEDS ORDERED: MAGNESIUM CITRATE 300 ML BOTTLE PO PRN (18:04)
[2017-10-25] MEDS ORDERED: hydrOXYzine PAMOATE 50 MG CAPSULE (FP) PO PRN (18:04)
[2017-10-25] MEDS ORDERED: MAGNESIUM HYDROX 2400MG/30ML ORAL SUSPENSION 30 ML CUP PO PRN (18:04)
[2017-10-25] MEDS ORDERED: LOPERAMIDE HCL 2 MG CAPSULE PO PRN (18:04)
[2017-10-25] MEDS ORDERED: MENTHOL/PHENOL 1 EACH UD MM PRN (18:04)
[2017-10-25] MEDS ORDERED: P-EPHED 60MG/TRIPROLIDI 2.5MG TABLET PO PRN (18:04)
[2017-10-25] MEDS ORDERED: IBUPROFEN 400 MG TABLET (FP) PO PRN (18:04)
[2017-10-25] MEDS ORDERED: guaiFENesin/D-METHORPHAN HB 10 ML UNIT-DOSE CUPS PO PRN (18:04)
[2017-10-25] MEDS: diazePAM 5 MG TABLET PO PRN (19:51)
[2017-10-25] MEDS ORDERED: METHADONE HCL 10 MG TABLET (FOR DETOX USE ONLY) PO ONE ×2 (20:00→23:00)
[2017-10-25] MEDS: THIAMINE HCL 100 MG TABLET (FP) PO SCH (22:36)
[2017-10-25 22:49] LABS: URINE APPEARANCE CLEAR; URINE BILIRUBIN NEGATIVE (NEGATIVE); URINE BLOOD NEGATIVE (NEGATIVE); URINE COLOR LTYELLOW; URINE GLUCOSE (UA) NEGATIVE (NEGATIVE); URINE KETONE NEGATIVE (NEGATIVE); URINE LEUK ESTERASE NEGATIVE (NEGATIVE); URINE NITRITE NEGATIVE (NEGATIVE); URINE PROTEIN NEGATIVE (NEGATIVE); URINE UROBILINOGEN NEGATIVE mg/dL (0.2-1.0)
[2017-10-26] MEDS: diazePAM 5 MG TABLET PO PRN ×2 (09:45→22:29)
[2017-10-26] MEDS: PRENATAL VITAMINS W/ FOLIC ACID TABLET (FP) PO SCH (09:47)
[2017-10-26] MEDS ORDERED: METHADONE HCL 10 MG TABLET (FOR DETOX USE ONLY) PO ONE (10:00)
[2017-10-26 10:27] LABS: HEMATOCRIT 41.2 % (35.4-49); HEMOGLOBIN 13.5 GM/dL (11.7-16.9); MCH 27.9 pg (25.7-33.7); MCHC 32.7 g/dl (32.0-35.9); MEAN CELL VOLUME 85.3 fl (80-96); MEAN PLT VOLUME 8.8 fl (7.5-11.1); PLATELET COUNT 264 K/MM3 (134-434); RBC 4.83 M/mm3 (4.00-5.60); RDW 13.8 % (11.9-15.9); WHITE BLOOD COUNT 7.9 K/mm3 (4.0-10.0)
[2017-10-26 10:33] LABS: BLOOD UREA NITROGEN 10 mg/dL (7-18); CHLORIDE 103 mmol/L (98-107); POTASSIUM 3.9 mmol/L (3.5-5.1); SODIUM 141 mmol/L (136-145)
[2017-10-26 10:59] LABS: ALBUMIN 3.1 g/dl (3.4-5.0); ALK PHOS 103 U/L (45-117); ANION GAP 11 (8-16); BILIRUBIN,TOTAL 0.4 mg/dL (0.2-1.0); CALCIUM 8.8 mg/dL (8.5-10.1); CO2 27 mmol/L (21-32); CREATININE 0.7 mg/dL (0.7-1.3); GLUCOSE,RANDOM 81 mg/dL (74-106); SGOT/AST 11 U/L (15-37); SGPT/ALT 16 U/L (12-78)
[2017-10-26] MEDS ORDERED: PNEUMOC 13-VAL CONJ-DIP CRM/PF 0.5 ML DISP.SYRIN IM ONE (12:00)
[2017-10-26] MEDS ORDERED: PNEUMOCOCCAL 23 VACCINE 0.5 ML VIAL IM ONE (12:00)
--- NOTE | 2017-10-26 14:01 | PN ---
[facility] COWS - Scale Resting Pulse: 0= [place] 80 or Below Sweatin= Chills/Flushing Restless Observation: 1= Difficult to Sit Still Pupil Size: 0= Normal to Room Light Bone or Joint Aches: 2= Severe Diffuse Aches Runny Nose/ Eye Tearin= Nasal Congestion GI Upset > 30mins: 0= None Tremor Observation of Outstretched Hands: 2= Slight Tremor Visible Yawning Observation: 1= 1-2x During Session Anxiety or Irritability: 2=Irritable/Anxious Goose Flesh Skin: 3=Piloerection COWS Score: 13 BHS Progress Note (SOAP) Subjective: Tremors, Anxious, Body Aches, Sweating. Objective: PT. A & O X 2 (UNCERTAIN ABOUT CURRENT DAY / DATE). OBSERVED AMBULATING ON UNIT. NO ACUTE DISTRESS. 10/26/17 13:54 Vital Signs Temperature 96.1 F L 10/26/17 13:49 Pulse Rate 73 10/26/17 13:49 Respiratory Rate 20 10/26/17 13:49 Blood Pressure 124/70 10/26/17 13:49 O2 Sat by Pulse Oximetry (%) Laboratory Tests 10/25/17 10/26/17 10/26/17 Unknown 07:40 07:40 WBC 7.9 RBC 4.83 Hgb 13.5 Hct 41.2 MCV 85.3 MCH 27.9 MCHC 32.7 RDW 13.8 Plt Count 264 MPV 8.8 Sodium 141 Potassium 3.9 Chloride 103 Carbon Dioxide 27 Anion Gap 11 BUN 10 D Creatinine 0.7 Creat Clearance w eGFR > 60 Random Glucose 81 Calcium 8.8 Total Bilirubin 0.4 AST 11 L ALT 16 Alkaline Phosphatase 103 Total Protein 6.0 L Albumin 3.1 L Urine Color Ltyellow Urine Appearance Clear Urine pH 5.0 Ur Specific [place] 1.012 Urine Protein Negative Urine Glucose (UA) Negative Urine Ketones Negative Urine Blood Negative Urine Nitrite Negative Urine Bilirubin Negative Urine Urobilinogen Negative Ur Leukocyte Esterase Negative RPR Titer HIV 1&2 Antibody Screen HIV P24 Antigen 10/26/17 10/26/17 07:40 07:40 WBC RBC Hgb Hct MCV MCH MCHC RDW Plt Count MPV Sodium Potassium Chloride Carbon Dioxide Anion Gap BUN Creatinine Creat Clearance w eGFR Random Glucose Calcium Total Bilirubin AST ALT Alkaline Phosphatase Total Protein Albumin Urine Color Urine Appearance Urine pH Ur Specific [place] Urine Protein Urine Glucose (UA) Urine Ketones Urine Blood Urine Nitrite Urine Bilirubin Urine Urobilinogen Ur Leukocyte Esterase RPR Titer Nonreactive HIV 1&2 Antibody Screen Negative HIV P24 Antigen Negative LABS NOTED. Assessment: 10/26/17 13:55 WITHDRAWAL SYMPTOMS. Plan: CONTINUE DETOX.
--- NOTE | 2017-10-26 15:23 | CONSULT ---
[facility] Psychiatric Consult - Data Date of interview: 10/26/17 Admission source: [facility] Identifying data: This is another admission to [facility] for this 27 y/o male seeking detox treatment on for heroin,and marihuana dependence.Patient is single without children,domiciled (lives with his mother), unemployed and supported on SSI benefits. Substance Abuse History: Confirmed by patient in this interview.Refer to current [facility] report for details. Smoking history: Current every day smoker. Have you smoked in the past 12 months: Yes. Aproximately how many cigarettes per day: 20. Cigars Per Day: 0. Hx Chewing Tobacco Use: No. Initiated information on smoking cessation: Yes. 'Breaking Loose' booklet given: . - Substance & Tx. History. Hx Alcohol Use: No. Hx Substance Use: Yes. Substance Use Type: Heroin, Marijuana. Hx Substance Use Treatment: Yes ([facility] - 09/03/17). - Substances Abused. Heroin. Route: Inhalation. Frequency: Daily. Amount used: 1 .5 bundles. Age of first use: 25. Date of Last Use: 10/25/17 Medical History: Patient denies medical problems. Psychiatric History: History of multiple psychiatric hospitalizations.Onset of psychiatric disturbaances (adolescence).Diagnosed with KURT,ADD and Schizoaffective Disorder as per self-report.Past admissions to [facility] and [facility].Mr Puentes declares that he is still followed at [facility].Maintained on a regimen of adderall ER 30 mg/day + clonazepam ( dose not recalled) + seroquel 100 mg/hs + enderal 10 mg po bid.Patient indicates also that he gets a monthly injection of invega (date of last injection : unknown).No reported history of suicide attempts. Physical/Sexual Abuse/Trauma History: Patient denies. Additional Comment: Urine Drug Screen Results: OPI-Opiates, AMP-Amphetamines, MET-Methamphetamine, TCA-Tricyclic Antidepress, OXY-Oxycodone.Noted. Mental Status Exam - Mental Status Exam Alert and Oriented to: Time, Place, Person Cognitive Function: Good Patient Appearance: Well Groomed (earrring in both earlobes) Mood: Withdrawn, Hopeful Affect: Appropriate, Normal Range Patient Behavior: Fatigued, Appropriate, Cooperative Speech Pattern: Clear, Appropriate Voice Loudness: Normal Thought Process: Goal Oriented Thought Disorder: Not Present Hallucinations: Denies Suicidal Ideation: Denies Homicidal Ideation: Denies Insight/Judgement: Poor Sleep: Poorly, Difficulty falling asleep Appetite: Good Muscle strength/Tone: Normal Gait/Station: Normal Psychiatric Findings - Problem List ([place] 1, 2,3) (1) Opioid dependence with withdrawal Current Visit: Yes Status: Acute (2) Cannabis dependence Current Visit: Yes Status: Acute (3) Nicotine dependence Current Visit: Yes Status: Acute Qualifiers: Nicotine product type: cigarettes Substance use status: in withdrawal Qualified Code(s): F17.213 - Nicotine dependence, cigarettes, with withdrawal (4) ADD (attention deficit disorder) Current Visit: Yes Status: Chronic Qualifiers: Hyperactivity presence: unspecified Qualified Code(s): F98.8 - Other specified behavioral and emotional disorders with onset usually occurring in childhood and adolescence Comment: As per self-report. (5) Schizoaffective disorder Current Visit: Yes Status: Chronic Comment: Self-report.Followed at [facility]. (6) Insomnia Current Visit: Yes Status: Active - Initial Treatment Plan Initial Treatment Plan: Records are reviewed.Psychoeducation.Sleep hygiene.Detoxification in progress.Medications : seroquel 100 mg po hs.Side effects/benefits discussed with the patient.Mr Puentes vebalizes his agreement to this careplan.Observation.
[2017-10-26] MEDS ORDERED: QUEtiapine FUMARATE 100 MG TABLET (FP) PO SCH (22:00)
[2017-10-26] MEDS: THIAMINE HCL 100 MG TABLET (FP) PO SCH (22:29)
[2017-10-27 09:10] VITALS: BP 143/88; PULSE 97; TEMP 96.3
[2017-10-27] MEDS: diazePAM 5 MG TABLET PO PRN (09:11)
[2017-10-27] MEDS ORDERED: METHADONE HCL 5 MG TABLET (FOR DETOX USE ONLY) PO ONE (10:00)
[2017-10-27] MEDS: PRENATAL VITAMINS W/ FOLIC ACID TABLET (FP) PO SCH (10:41)
[2017-10-27] MEDS ORDERED: NICOTINE POLACRILEX 4 MG GUM BUC PRN (12:03)
--- NOTE | 2017-10-27 14:06 | DS ---
[facility] Detox Discharge Summary Admission Date: 10/25/17 Discharge Date: 10/27/17 - History Present History: Cannabis Dependence, Opioid Dependence Additional Comments: PATIENT DOES NOT WISH TO STAY TO COMPLETE DETOX REGIMEN. RISKS OF LEAVING DETOX UNIT AGAINST MEDICAL ADVICE AND PRIOR TO COMPLETION OF DETOX REGIMEN EXPLAINED TO PATIENT. PATIENT ADVISED TO GO IMMEDIATELY TO NEAREST ER SHOULD ANY INTOLERABLE DETOX SYMPTOMS DEVELOP AT ANY TIME. PATIENT LEFT DETOX UNIT IN STABLE MEDICAL CONDITION. Pertinent Past History: Nicotine Dependence, Depression, Schizoaffective Disorder, Insomnia. - Physical Exam Results Vital Signs: Vital Signs Temperature 96.3 F L 10/27/17 09:10 Pulse Rate 97 H 10/27/17 09:10 Respiratory Rate 18 10/27/17 09:10 Blood Pressure 143/88 10/27/17 09:10 O2 Sat by Pulse Oximetry (%) Pertinent Admission Physical Exam Findings: WITHDRAWAL SYMPTOMS. Laboratory Tests 10/25/17 10/26/17 10/26/17 Unknown 07:40 07:40 WBC 7.9 RBC 4.83 Hgb 13.5 Hct 41.2 MCV 85.3 MCH 27.9 MCHC 32.7 RDW 13.8 Plt Count 264 MPV 8.8 Sodium 141 Potassium 3.9 Chloride 103 Carbon Dioxide 27 Anion Gap 11 BUN 10 D Creatinine 0.7 Creat Clearance w eGFR > 60 Random Glucose 81 Calcium 8.8 Total Bilirubin 0.4 AST 11 L ALT 16 Alkaline Phosphatase 103 Total Protein 6.0 L Albumin 3.1 L Urine Color Ltyellow Urine Appearance Clear Urine pH 5.0 Ur Specific [place] 1.012 Urine Protein Negative Urine Glucose (UA) Negative Urine Ketones Negative Urine Blood Negative Urine Nitrite Negative Urine Bilirubin Negative Urine Urobilinogen Negative Ur Leukocyte Esterase Negative RPR Titer HIV 1&2 Antibody Screen HIV P24 Antigen 10/26/17 10/26/17 07:40 07:40 WBC RBC Hgb Hct MCV MCH MCHC RDW Plt Count MPV Sodium Potassium Chloride Carbon Dioxide Anion Gap BUN Creatinine Creat Clearance w eGFR Random Glucose Calcium Total Bilirubin AST ALT Alkaline Phosphatase Total Protein Albumin Urine Color Urine Appearance Urine pH Ur Specific [place] Urine Protein Urine Glucose (UA) Urine Ketones Urine Blood Urine Nitrite Urine Bilirubin Urine Urobilinogen Ur Leukocyte Esterase RPR Titer Nonreactive HIV 1&2 Antibody Screen Negative HIV P24 Antigen Negative LABS NOTED. - Treatment Hospital Course: Detoxed Safely - Medication Discharge Medications: Ambulatory Orders Propranolol HCl 10 mg PO BID 08/31/17 Quetiapine Fumarate [Seroquel -] 100 mg PO HS 08/31/17 - Diagnosis (1) Nicotine dependence Status: Acute Qualifiers: Nicotine product type: cigarettes Substance use status: in withdrawal Qualified Code(s): F17.213 - Nicotine dependence, cigarettes, with withdrawal (2) Opioid dependence with withdrawal Status: Acute (3) ADD (attention deficit disorder) Status: Chronic Qualifiers: Hyperactivity presence: unspecified Qualified Code(s): F98.8 - Other specified behavioral and emotional disorders with onset usually occurring in childhood and adolescence (4) Difficulty sleeping Status: Acute (5) Schizoaffective disorder Status: Chronic (6) Cannabis dependence Status: Acute - AMA Did Patient Leave Against Medical Advice: Yes (PATIENT DID NOT WISH TO STAY TO COMPLETE DETOX REGIMEN.)
[2017-10-28] MEDS ORDERED: METHADONE HCL 5 MG TABLET (FOR DETOX USE ONLY) PO ONE (10:00)
[2017-10-29] MEDS ORDERED: METHADONE HCL 10 MG TABLET (FOR DETOX USE ONLY) PO ONE (10:00)
[2017-10-30] MEDS ORDERED: METHADONE HCL 5 MG TABLET (FOR DETOX USE ONLY) PO ONE (06:00)
--- NOTE | 2017-10-30 13:38 | EKG ---
Test Reason : Blood Pressure : / mmHG Vent. Rate : 078 BPM Atrial Rate : 078 BPM P-R Int : 124 ms QRS Dur : 092 ms QT Int : 404 ms P-R-T Axes : 030 040 045 degrees QTc Int : 460 ms NORMAL SINUS RHYTHM NORMAL ECG WHEN COMPARED WITH ECG OF 31-AUG-2017 22:46, NO SIGNIFICANT CHANGE WAS FOUND Confirmed by MD Lopez Daniel ([id number]) on 10/30/2017 1:38:20 PM Referred By: Confirmed By:Cr Lopez MD
== END 2017-10-27 12:37 | disposition left against medical advice (07) | DRG 770 ==
LOC: YASAS 12:37 → Y3N 19:04
PROVIDERS: ADMIT Internal Medicine; ATTEND Internal Medicine
PROC: HZ2ZZZZ Detoxification Services for Substance Abuse Treatment (ICD-10-PCS; principal; 2017-10-25)
DX: F11.23 Opioid dependence with withdrawal (principal); F17.213 Nicotine dependence, cigarettes, with withdrawal; F98.8 Other specified behavioral and emotional disorders with onset usually occurring in childhood and adolescence; F25.9 Schizoaffective disorder, unspecified; G47.9 Sleep disorder, unspecified; G47.00 Insomnia, unspecified
CPT/HCPCS: 36415; 80053; 81003; 85027; 86593; 87389; 93005; 93010

== ENCOUNTER 2017-11-20 14:21 | Inpatient (IN) | payer OTHER ==
[2017-11-20 18:09] VITALS: BMI 28.4
--- NOTE | 2017-11-20 20:21 | HP ---
COWS - Scale Resting Pulse: 1= [place] 81-100 Sweatin= Chills/Flushing Restless Observation: 1= Difficult to Sit Still Pupil Size: 0= Normal to Room Light Bone or Joint Aches: 1= Mild Discomfort Runny Nose/ Eye Tearin= Runny Nose/Eyes GI Upset > 30mins: 3= Vomiting/Diarrhea Tremor Observation: 1= Tremor [place], Not Seen Yawning Observation: 1= 1-2x During Session Anxiety or Irritability: 2=Irritable/Anxious Goose Flesh Skin: 0=Smooth Skin COWS Score: 13 Admission ROS S - HPI Chief Complaint: " I just want to clean really bad, I feel dope sick." Allergies/Adverse Reactions: Allergies Allergy/AdvReac Type Severity Reaction Status Date / Time haloperidol [From Haldol] Allergy Severe Difficulty Verified 11/20/17 18:03 Breathing haloperidol lactate Allergy Severe Difficulty Verified 11/20/17 18:03 [From Haldol] Breathing olanzapine [From Zyprexa] Allergy Severe Verified 11/20/17 18:03 Shellfish Allergy Severe Itching Verified 11/20/17 18:03 History of Present Illness: 27 yo male with hx of heroin, marijuana and nicotine dependence is here seeking detox. Past medical hx : schizo-affective d/o, denies any other significant health hx. Denies suicidal / homicidal ideation or suicide attempts. Last detox 10/25/17 - 09/22/[address] [facility], reports has not attempted any other detox or rehabilitation programs. Denies any recent hospitalizations. Denies any significant period of sobriety. Denies any seizures or blackouts. Reports interested for outpatient rehab with a sponsor and group therapy. Exam Limitations: No Limitations - Ebola screening Have you traveled outside of the country in the last 21 days: No Have you had contact with anyone from an Ebola affected area: No Have you been sick,other than usual withdrawal symptoms: No Do you have a fever: No - Review of Systems Constitutional: Chills, Loss of Appetite, Changes in sleep EENT: reports: Other (runny nose) Respiratory: reports: No Symptoms reported Cardiac: reports: No Symptoms Reported GI: reports: Constipated, Nausea, Poor Fluid Intake, Vomiting : reports: Other (blood streak stool) Musculoskeletal: reports: Back Pain Integumentary: reports: Pruritus, Other (lump bilateral inner thigh ( boil)) Neuro: reports: Weakness Endocrine: reports: Excessive Sweating, Increased Thirst Hematology: reports: No Symptoms Reported Psychiatric: reports: Orientated x3, Anxious Other Systems: Reviewed and Negative Patient History - Patient Medical History Hx Anemia: No Hx Asthma: No Hx Chronic Obstructive Pulmonary Disease (COPD): No Hx Cancer: No Hx Cardiac Disorders: No Hx Congestive Heart Failure: No Hx Hypertension: No Hx Hypercholesterolemia: No Hx Pacemaker: No HX Cerebrovascular Accident: No Hx Seizures: No Hx Dementia: No Hx Diabetes: No Hx Gastrointestinal Disorders: No Hx Liver Disease: No Hx Genitourinary Disorders: No Hx Sexually Transmitted Disorders: No Hx Renal Disease (ESRD): No Hx Thyroid Disease: No Hx Human Immunodeficiency Virus (HIV): No Hx Hepatitis C: No Hx Depression: Yes Hx Suicide Attempt: No Hx Bipolar Disorder: No Hx Schizophrenia: No - Patient Surgical History Past Surgical History: No Hx Neurologic Surgery: No Hx Cataract Extraction: No Hx Cardiac Surgery: No Hx Lung Surgery: No Hx Breast Surgery: No Hx Breast Biopsy: No Hx Abdominal Surgery: No Hx Appendectomy: No Hx Cholecystectomy: No Hx Genitourinary Surgery: No Hx Section: No Hx Orthopedic Surgery: No Anesthesia Reaction: No - PPD History Previous Implant?: Yes Documented Results: Negative w/proof Date: 09/02/17 Results: 0mm PPD to be Administered?: No - Reproductive History Patient is a Female of Child Bearing Age (11 -55 yrs old): No - Smoking Cessation Smoking history: Current every day smoker Have you smoked in the past 12 months: Yes Aproximately how many cigarettes per day: 20 Cigars Per Day: 0 Hx Chewing Tobacco Use: No Initiated information on smoking cessation: Yes 'Breaking Loose' booklet given: 11/20/17 - Substances Abused Heroin Route: Inhalation Frequency: Daily Amount used: 10 BAGS Age of first use: 17 Date of Last Use: 11/19/17 Family Disease History - Family Disease History Family Disease History: Heart Disease: Father, Other: Mother (ANXIETY, DEPRESSION) Admission Physical Exam [facility] - Vital Signs Vital Signs: Vital Signs - 24 hr 11/20/17 18:07 Temperature 98.6 F Pulse Rate 97 H Respiratory 18 Rate Blood Pressure 130/83 - Physical General Appearance: Yes: Appropriately Dressed, Mild Distress, Sweating, Anxious HEENTM: Yes: EOMI, Hearing grossly Normal, Normal ENT Inspection, Normocephalic , Normal Voice, BARTOLO, Pharynx Normal, Tm's normal, Rhinorrhea Respiratory: Yes: Chest Non-Tender, Normal Breath Sounds, No Respiratory Distress, No Accessory Muscle Use Neck: Yes: No masses,lesions,Nodules, Trachea in good position Breast: Yes: Breast Exam Deferred Cardiology: Yes: Regular Rhythm, Regular Rate Abdominal: Yes: Normal Bowel Sounds, Flat Genitourinary: Yes: Within Normal Limits Back: Yes: Normal Inspection Musculoskeletal: Yes: full range of Motion, Gait Steady, Pelvis Stable, Back pain Extremities: Yes: Normal Capillary Refill, Normal Inspection, Normal Range of Motion, Non-Tender 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, Fully Oriented, Alert, Motor Strength 5/5, Depressed Affect Integumentary: Yes: Normal Color, Other (open sebacous cyst on the right inner thigh, no signs of infection) Lymphatic: Yes: Within Normal Limits - Addiitonal Findings: reports has tried the nicorette gum without any symptoms reports kin allergies to the glue on the nicotine patch reports currently not using street bezons and clonazam was d/c a week ago, patient verbalizes consent to contact prescribing provider - Diagnostic (1) Psychiatric disorder Current Visit: Yes Status: Suspected (2) Constipation Current Visit: Yes Status: Acute Qualifiers: Constipation type: unspecified constipation type Qualified Code(s): K59.00 - Constipation, unspecified (3) Low back pain without sciatica Current Visit: Yes Status: Acute Qualifiers: Chronicity: acute Back pain laterality: midline Qualified Code(s): M54.5 - Low back pain (4) Insomnia Current Visit: Yes Status: Active (5) Nicotine dependence Current Visit: Yes Status: Acute Qualifiers: Nicotine product type: cigarettes Substance use status: in withdrawal Qualified Code(s): F17.213 - Nicotine dependence, cigarettes, with withdrawal (6) Opioid dependence with withdrawal Current Visit: Yes Status: Acute (7) Anxious mood Current Visit: Yes Status: Acute (8) Ruptured sebaceous cyst Current Visit: Yes Status: Acute Cleared for Admission [facility] - Detox or Rehab [facility] Level of Care: Medically Managed Detox Regimen/Protocol: Methadone [facility] Breath Alcohol Content Breath Alcohol Content: 0 Urine Drug Screen - Results Drug Screen Negative: No Urine Drug Screen Results: JAYLEN-Cocaine, OPI-Opiates, AMP-Amphetamines, BZO- Benzodiazepines
[2017-11-20] MEDS ORDERED: MAGNESIUM CITRATE 300 ML BOTTLE PO PRN (20:32)
[2017-11-20] MEDS ORDERED: MENTHOL/PHENOL 1 EACH UD MM PRN (20:32)
[2017-11-20] MEDS ORDERED: P-EPHED 60MG/TRIPROLIDI 2.5MG TABLET PO PRN (20:32)
[2017-11-20] MEDS ORDERED: METHADONE HCL 10 MG TABLET (FOR DETOX USE ONLY) PO ONE ×2 (20:32→23:00)
[2017-11-20] MEDS ORDERED: MAGNESIUM HYDROX 2400MG/30ML ORAL SUSPENSION 30 ML CUP PO PRN (20:32)
[2017-11-20] MEDS ORDERED: LOPERAMIDE HCL 2 MG CAPSULE PO PRN (20:32)
[2017-11-20] MEDS ORDERED: hydrOXYzine PAMOATE 50 MG CAPSULE (FP) PO PRN (20:32)
[2017-11-20] MEDS ORDERED: guaiFENesin/D-METHORPHAN HB 10 ML UNIT-DOSE CUPS PO PRN (20:32)
[2017-11-20] MEDS ORDERED: IBUPROFEN 400 MG TABLET (FP) PO PRN (20:32)
[2017-11-20] MEDS ORDERED: MAG HYDROX/AL HYDROX/SIMETH 30 ML UNIT-DOSE CUP PO PRN (20:32)
[2017-11-20] MEDS ORDERED: ACETAMINOPHEN 325 MG TABLET (FP) PO PRN (20:32)
[2017-11-20] MEDS ORDERED: CYCLOBENZAPRINE HCL 10 MG TABLET (FP) PO PRN (20:34)
[2017-11-20] MEDS ORDERED: GLYCERIN 1 RECTAL SUPPOSITORY, ADULT PR PRN (20:35)
[2017-11-20] MEDS: MELATONIN 5 MG TABLETS PO SCH (21:41)
[2017-11-20] MEDS: diazePAM 5 MG TABLET PO PRN (21:41)
[2017-11-20] MEDS: DOCUSATE SODIUM 100 MG CAPSULE (FP) PO SCH (21:43)
[2017-11-20] MEDS: BACITRACIN 15 GM TUBE TOPICAL OINTMENT TP SCH (22:37)
[2017-11-20] MEDS: THIAMINE HCL 100 MG TABLET (FP) PO SCH (22:38)
[2017-11-21 01:39] LABS: URINE APPEARANCE CLEAR; URINE BILIRUBIN NEGATIVE (NEGATIVE); URINE BLOOD NEGATIVE (NEGATIVE); URINE COLOR LTYELLOW; URINE GLUCOSE (UA) NEGATIVE (NEGATIVE); URINE KETONE NEGATIVE (NEGATIVE); URINE LEUK ESTERASE NEGATIVE (NEGATIVE); URINE NITRITE NEGATIVE (NEGATIVE); URINE PROTEIN NEGATIVE (NEGATIVE); URINE UROBILINOGEN NEGATIVE mg/dL (0.2-1.0)
--- NOTE | 2017-11-21 08:58 | CONSULT ---
[facility] Psychiatric Consult - Data Date of interview: 11/21/17 Admission source: [facility] Identifying data: This is 27 years old male, single, living with GF, on SSI, with history of Schizoaffective Disorder, with psychiatric hospitalization history, is here seeking detox due to abusing Heroin, Cocaine, Amphetamins and Benzodiazepins. Substance Abuse History: Urine Drug Screen Results: JAYLEN-Cocaine, OPI-Opiates, AMP-Amphetamines, BZO-Benzodiazepines. Smoking history: Current every day smoker. Have you smoked in the past 12 months: Yes. Aproximately how many cigarettes per day: 20. Cigars Per Day: 0. Hx Chewing Tobacco Use: No. Initiated information on smoking cessation: Yes. 'Breaking Loose' booklet given : 11/20/17. - Substances Abused. Heroin. Route: Inhalation. Frequency: Daily. Amount used: 10 BAGS. Age of first use: 17. Date of Last Use: 11/19/17 Medical History: LBP, denies significant medical issues Psychiatric History: Patient reports psychiatric hospitalization history back on about 10 years ago, reports history of Schizoaffective disorder/ BipolarI Disorder, ADHD, , denies suicidal history, reports taking prior to admission: Depakote 500mg po qhs. Buspar 10mg po bid,. Seroquel 100mg po qhs Physical/Sexual Abuse/Trauma History: Denies Additional Comment: Urine Drug Screen Results: JAYLEN-Cocaine, OPI-Opiates, AMP- Amphetamines, BZO-Benzodiazepines Mental Status Exam - Mental Status Exam Alert and Oriented to: Person Cognitive Function: Fair Patient Appearance: Unkempt Mood: Sad Affect: Mood Congruent Patient Behavior: Cooperative Speech Pattern: Appropriate Voice Loudness: Mildly Soft/Quiet Thought Process: Circumstantial Thought Disorder: Being Controlled Hallucinations: Denies Suicidal Ideation: Denies Homicidal Ideation: Denies Insight/Judgement: Fair Sleep: Difficulty falling asleep Appetite: Weight loss Muscle strength/Tone: Mild Hypotonicity Gait/Station: Shuffling Additional Comments: Depakote 500mg po qhs. Buspar 10mg po bid,. Seroquel 100mg po qhs Psychiatric Findings - Problem List ([place] 1, 2,3) (1) Nicotine dependence Current Visit: Yes Status: Acute Qualifiers: Nicotine product type: cigarettes Substance use status: in withdrawal Qualified Code(s): F17.213 - Nicotine dependence, cigarettes, with withdrawal (2) Opioid dependence with withdrawal Current Visit: Yes Status: Acute (3) Bipolar I disorder Current Visit: No Status: Chronic (4) ADD (attention deficit disorder) Current Visit: No Status: Chronic Qualifiers: Hyperactivity presence: unspecified Qualified Code(s): F98.8 - Other specified behavioral and emotional disorders with onset usually occurring in childhood and adolescence Comment: As per self-report. (5) Schizoaffective disorder Current Visit: No Status: Chronic Comment: Self-report.Followed at [facility]. - Initial Treatment Plan Initial Treatment Plan: Depakote 500mg po qhs. Buspar 10mg po bid,. Seroquel 100mg po qhs
--- NOTE | 2017-11-21 09:59 | EKG ---
Test Reason : Blood Pressure : / mmHG Vent. Rate : 071 BPM Atrial Rate : 071 BPM P-R Int : 132 ms QRS Dur : 088 ms QT Int : 388 ms P-R-T Axes : 034 018 024 degrees QTc Int : 421 ms NORMAL SINUS RHYTHM NORMAL ECG WHEN COMPARED WITH ECG OF 25-OCT-2017 20:06, NO SIGNIFICANT CHANGE WAS FOUND Confirmed by DANTE CAMPUZANO MD ([id number]) on 11/21/2017 9:58:37 AM Referred By: Confirmed By:DANTE CAMPUZANO MD
--- NOTE | 2017-11-21 09:59 | PN ---
S CIWA - CIWA Score Nausea/Vomitin-Mild Nausea/No Vomiting Muscle Tremors: 4-Moderate,w/Arms Extend Anxiety: 4-Mod. Anxious/Guarded Agitation: 3 Paroxysmal Sweats: 1-Minimal Palms Moist Orientation: 0-Oriented Tacttile Disturbances: 0-None Auditory Disturbances: 0-None Visual Disturbances: 0-None Headache: 0-None Present CIWA-Ar Total Score: 13 BHS Progress Note (SOAP) Subjective: sweat tremor restlessness anxiety irritable Objective: 11/21/17 09:58 Vital Signs Temperature 97.9 F 11/21/17 06:00 Pulse Rate 77 11/21/17 06:00 Respiratory Rate 18 11/21/17 06:00 Blood Pressure 97/56 11/21/17 06:00 O2 Sat by Pulse Oximetry (%) Laboratory Last Values Urine Color Ltyellow 11/20/17 23:34 Urine Appearance Clear 11/20/17 23:34 Urine pH 6.0 (5.0-8.0) 11/20/17 23:34 Ur Specific [place] 1.014 (1.001-1.035) 11/20/17 23:34 Urine Protein Negative (NEGATIVE) 11/20/17 23:34 Urine Glucose (UA) Negative (NEGATIVE) 11/20/17 23:34 Urine Ketones Negative (NEGATIVE) 11/20/17 23:34 Urine Blood Negative (NEGATIVE) 11/20/17 23:34 Urine Nitrite Negative (NEGATIVE) 11/20/17 23:34 Urine Bilirubin Negative (NEGATIVE) 11/20/17 23:34 Urine Urobilinogen Negative mg/dL (0.2-1.0) 11/20/17 23:34 Ur Leukocyte Esterase Negative (NEGATIVE) 11/20/17 23:34 lab noted Assessment: 11/21/17 09:58 withdrawal sx Plan: continue detox
[2017-11-21] MEDS ORDERED: METHADONE HCL 10 MG TABLET (FOR DETOX USE ONLY) PO ONE (10:00)
[2017-11-21 10:21] LABS: HEMATOCRIT 39.9 % (35.4-49); HEMOGLOBIN 13.3 GM/dL (11.7-16.9); MCH 28.5 pg (25.7-33.7); MCHC 33.4 g/dl (32.0-35.9); MEAN CELL VOLUME 85.3 fl (80-96); MEAN PLT VOLUME 9.7 fl (7.5-11.1); PLATELET COUNT 174 K/MM3 (134-434); RBC 4.68 M/mm3 (4.00-5.60); RDW 14.2 % (11.9-15.9); WHITE BLOOD COUNT 8.1 K/mm3 (4.0-10.0)
[2017-11-21] MEDS: busPIRone HCL 10 MG TABLET (FP) PO SCH (10:36)
[2017-11-21] MEDS: PRENATAL VITAMINS W/ FOLIC ACID TABLET (FP) PO SCH (10:36)
[2017-11-21] MEDS: BACITRACIN 15 GM TUBE TOPICAL OINTMENT TP SCH ×2 (10:36→22:57)
[2017-11-21] MEDS: NICOTINE POLACRILEX 2 MG GUM BC PRN ×2 (10:39→23:03)
[2017-11-21] MEDS: diazePAM 5 MG TABLET PO PRN ×3 (10:39→22:58)
[2017-11-21 12:43] LABS: ALBUMIN 3.3 g/dl (3.4-5.0); ALK PHOS 95 U/L (45-117); ANION GAP 10 (8-16); BILIRUBIN,TOTAL 0.6 mg/dL (0.2-1.0); BLOOD UREA NITROGEN 10 mg/dL (7-18); CALCIUM 8.6 mg/dL (8.5-10.1); CHLORIDE 101 mmol/L (98-107); CO2 29 mmol/L (21-32); CREATININE 0.7 mg/dL (0.7-1.3); GLUCOSE,RANDOM 83 mg/dL (74-106); POTASSIUM 4.2 mmol/L (3.5-5.1); SGOT/AST 8 U/L (15-37); SGPT/ALT 12 U/L (12-78); SODIUM 140 mmol/L (136-145); TOT PROT 6.1 g/dl (6.4-8.2)
[2017-11-21] MEDS: DOCUSATE SODIUM 100 MG CAPSULE (FP) PO SCH (22:57)
[2017-11-21] MEDS: CYCLOBENZAPRINE HCL 5 MG TABLET PO PRN (22:57)
[2017-11-21] MEDS: QUEtiapine FUMARATE 100 MG TABLET (FP) PO SCH (22:57)
[2017-11-21] MEDS: DIVALPROEX SODIUM 500 MG TABLET E.C. PO SCH (22:57)
[2017-11-21] MEDS: THIAMINE HCL 100 MG TABLET (FP) PO SCH (22:58)
[2017-11-21] MEDS: MELATONIN 5 MG TABLETS PO SCH (22:59)
[2017-11-22] MEDS ORDERED: METHADONE HCL 5 MG TABLET (FOR DETOX USE ONLY) PO ONE (10:00)
--- NOTE | 2017-11-22 10:23 | PN ---
BHS COWS - Scale Resting Pulse: 0= [place] 80 or Below Sweatin= Chills/Flushing Restless Observation: 1= Difficult to Sit Still Pupil Size: 1= Pupils >than Normal Bone or Joint Aches: 1= Mild Discomfort Runny Nose/ Eye Tearin= Nasal Congestion GI Upset > 30mins: 2= Nausea/Diarrhea Tremor Observation of Outstretched Hands: 2= Slight Tremor Visible Yawning Observation: 2= >3x During Session Anxiety or Irritability: 2=Irritable/Anxious Goose Flesh Skin: 0=Smooth Skin COWS Score: 13 BHS Progress Note (SOAP) Subjective: restlessness, unable to sleep throughout the night, sweat tremor irritable, stuffy nose Objective: 11/22/17 10:22 Vital Signs Temperature 97.5 F L 11/22/17 06:43 Pulse Rate 70 11/22/17 06:43 Respiratory Rate 20 11/22/17 06:43 Blood Pressure 98/58 11/22/17 06:43 O2 Sat by Pulse Oximetry (%) Laboratory Last Values WBC 8.1 K/mm3 (4.0-10.0) 11/21/17 07:00 RBC 4.68 M/mm3 (4.00-5.60) 11/21/17 07:00 Hgb 13.3 GM/dL (11.7-16.9) 11/21/17 07:00 Hct 39.9 % (35.4-49) 11/21/17 07:00 MCV 85.3 fl (80-96) 11/21/17 07:00 MCH 28.5 pg (25.7-33.7) 11/21/17 07:00 MCHC 33.4 g/dl (32.0-35.9) 11/21/17 07:00 RDW 14.2 % (11.9-15.9) 11/21/17 07:00 Plt Count 174 K/MM3 (134-434) D 11/21/17 07:00 MPV 9.7 fl (7.5-11.1) D 11/21/17 07:00 Sodium 140 mmol/L (136-145) 11/21/17 07:00 Potassium 4.2 mmol/L (3.5-5.1) 11/21/17 07:00 Chloride 101 mmol/L (98-107) 11/21/17 07:00 Carbon Dioxide 29 mmol/L (21-32) 11/21/17 07:00 Anion Gap 10 (8-16) 11/21/17 07:00 BUN 10 mg/dL (7-18) 11/21/17 07:00 Creatinine 0.7 mg/dL (0.7-1.3) 11/21/17 07:00 Creat Clearance w eGFR > 60 (>60) 11/21/17 07:00 Random Glucose 83 mg/dL (74-106) 11/21/17 07:00 Calcium 8.6 mg/dL (8.5-10.1) 11/21/17 07:00 Total Bilirubin 0.6 mg/dL (0.2-1.0) D 11/21/17 07:00 AST 8 U/L (15-37) L D 11/21/17 07:00 ALT 12 U/L (12-78) D 11/21/17 07:00 Alkaline Phosphatase 95 U/L (45-117) 11/21/17 07:00 Total Protein 6.1 g/dl (6.4-8.2) L 11/21/17 07:00 Albumin 3.3 g/dl (3.4-5.0) L 11/21/17 07:00 Urine Color Ltyellow 11/20/17 23:34 Urine Appearance Clear 11/20/17 23:34 Urine pH 6.0 (5.0-8.0) 11/20/17 23:34 Ur Specific [place] 1.014 (1.001-1.035) 11/20/17 23:34 Urine Protein Negative (NEGATIVE) 11/20/17 23:34 Urine Glucose (UA) Negative (NEGATIVE) 11/20/17 23:34 Urine Ketones Negative (NEGATIVE) 11/20/17 23:34 Urine Blood Negative (NEGATIVE) 11/20/17 23:34 Urine Nitrite Negative (NEGATIVE) 11/20/17 23:34 Urine Bilirubin Negative (NEGATIVE) 11/20/17 23:34 Urine Urobilinogen Negative mg/dL (0.2-1.0) 11/20/17 23:34 Ur Leukocyte Esterase Negative (NEGATIVE) 11/20/17 23:34 RPR Titer Nonreactive (NONREACTIVE) 11/21/17 07:00 HIV 1&2 Antibody Screen Negative 11/21/17 07:00 HIV P24 Antigen Negative 11/21/17 07:00 lab noted Assessment: 11/22/17 10:22 withdrawal sx Plan: continue detox
[2017-11-22] MEDS: PRENATAL VITAMINS W/ FOLIC ACID TABLET (FP) PO SCH (11:16)
[2017-11-22] MEDS: busPIRone HCL 10 MG TABLET (FP) PO SCH (11:16)
[2017-11-22] MEDS: diazePAM 5 MG TABLET PO PRN ×2 (11:16→22:47)
[2017-11-22] MEDS: BACITRACIN 15 GM TUBE TOPICAL OINTMENT TP SCH ×2 (12:03→23:14)
[2017-11-22] MEDS: DOCUSATE SODIUM 100 MG CAPSULE (FP) PO SCH (22:46)
[2017-11-22] MEDS: CYCLOBENZAPRINE HCL 5 MG TABLET PO PRN (22:47)
[2017-11-22] MEDS: QUEtiapine FUMARATE 100 MG TABLET (FP) PO SCH (22:47)
[2017-11-22] MEDS: THIAMINE HCL 100 MG TABLET (FP) PO SCH (22:47)
[2017-11-22] MEDS: DIVALPROEX SODIUM 500 MG TABLET E.C. PO SCH (22:47)
[2017-11-22] MEDS: MELATONIN 5 MG TABLETS PO SCH (23:15)
[2017-11-23] MEDS ORDERED: METHADONE HCL 5 MG TABLET (FOR DETOX USE ONLY) PO ONE (10:00)
[2017-11-23] MEDS: busPIRone HCL 10 MG TABLET (FP) PO SCH (10:26)
[2017-11-23] MEDS: PRENATAL VITAMINS W/ FOLIC ACID TABLET (FP) PO SCH (10:26)
[2017-11-23] MEDS: CYCLOBENZAPRINE HCL 5 MG TABLET PO PRN (10:26)
[2017-11-23] MEDS: diazePAM 5 MG TABLET PO PRN (10:26)
--- NOTE | 2017-11-23 11:51 | PN ---
BHS Progress Note (SOAP) Subjective: interrupted sleep, sweat , feeling hot Objective: 11/23/17 11:49 Vital Signs Temperature 96.6 F L 11/23/17 09:42 Pulse Rate 94 H 11/23/17 09:42 Respiratory Rate 20 11/23/17 09:42 Blood Pressure 110/68 11/23/17 09:42 O2 Sat by Pulse Oximetry (%) Laboratory Tests 11/20/17 11/21/17 11/21/17 23:34 07:00 07:00 WBC 8.1 RBC 4.68 Hgb 13.3 Hct 39.9 MCV 85.3 MCH 28.5 MCHC 33.4 RDW 14.2 Plt Count 174 D MPV 9.7 D Sodium Potassium Chloride Carbon Dioxide Anion Gap BUN Creatinine Creat Clearance w eGFR Random Glucose Calcium Total Bilirubin AST ALT Alkaline Phosphatase Total Protein Albumin Urine Color Ltyellow Urine Appearance Clear Urine pH 6.0 Ur Specific [place] 1.014 Urine Protein Negative Urine Glucose (UA) Negative Urine Ketones Negative Urine Blood Negative Urine Nitrite Negative Urine Bilirubin Negative Urine Urobilinogen Negative Ur Leukocyte Esterase Negative RPR Titer HIV 1&2 Antibody Screen Negative HIV P24 Antigen Negative 11/21/17 11/21/17 07:00 07:00 WBC RBC Hgb Hct MCV MCH MCHC RDW Plt Count MPV Sodium 140 Potassium 4.2 Chloride 101 Carbon Dioxide 29 Anion Gap 10 BUN 10 Creatinine 0.7 Creat Clearance w eGFR > 60 Random Glucose 83 Calcium 8.6 Total Bilirubin 0.6 D AST 8 L D ALT 12 D Alkaline Phosphatase 95 Total Protein 6.1 L Albumin 3.3 L Urine Color Urine Appearance Urine pH Ur Specific [place] Urine Protein Urine Glucose (UA) Urine Ketones Urine Blood Urine Nitrite Urine Bilirubin Urine Urobilinogen Ur Leukocyte Esterase RPR Titer Nonreactive HIV 1&2 Antibody Screen HIV P24 Antigen pt aox3 in nad ambulating Assessment: 11/23/17 11:50 withdrawalsx;s Plan: cont. detox increase fluids
[2017-11-23] MEDS: BACITRACIN 15 GM TUBE TOPICAL OINTMENT TP SCH ×2 (15:26→23:17)
[2017-11-23 22:11] VITALS: TEMP 96.1
[2017-11-23] MEDS: DOCUSATE SODIUM 100 MG CAPSULE (FP) PO SCH (22:35)
[2017-11-23] MEDS: QUEtiapine FUMARATE 100 MG TABLET (FP) PO SCH (22:35)
[2017-11-23] MEDS: DIVALPROEX SODIUM 500 MG TABLET E.C. PO SCH (22:35)
[2017-11-23] MEDS: THIAMINE HCL 100 MG TABLET (FP) PO SCH (22:36)
[2017-11-23] MEDS: MELATONIN 5 MG TABLETS PO SCH (22:36)
[2017-11-23] MEDS: NICOTINE POLACRILEX 2 MG GUM BC PRN (22:38)
[2017-11-24 06:38] VITALS: BP 94/52; PULSE 63
[2017-11-24] MEDS ORDERED: METHADONE HCL 10 MG TABLET (FOR DETOX USE ONLY) PO ONE (10:00)
[2017-11-24] MEDS: busPIRone HCL 10 MG TABLET (FP) PO SCH (10:56)
[2017-11-24] MEDS: BACITRACIN 15 GM TUBE TOPICAL OINTMENT TP SCH (10:57)
[2017-11-24] MEDS: PRENATAL VITAMINS W/ FOLIC ACID TABLET (FP) PO SCH (10:57)
--- NOTE | 2017-11-24 16:44 | PN ---
BHS Progress Note (SOAP) Subjective: sweats shakes Objective: 11/24/17 16:43 A& O x 3 ambulatory with a steady gait anxious Vital Signs Temperature 96.1 F L 11/23/17 22:11 Pulse Rate 63 11/24/17 06:00 Respiratory Rate 18 11/24/17 06:00 Blood Pressure 94/52 11/24/17 06:00 O2 Sat by Pulse Oximetry (%) Assessment: 11/24/17 16:44 withdrawal sx Plan: continue detox
--- NOTE | 2017-11-24 16:48 | DS ---
[facility] Detox Discharge Summary Admission Date: 11/20/17 Discharge Date: 11/24/17 - History Additional Comments: after A.M rounds, pt stated that he wanted to leave. Gave no reasons, just that he wants to need Insists on leaving despite advice to stay, declines to discuss if anything can be done to change his mind. in no acute distress, denies SI/HI pt will leave AMA - Physical Exam Results Vital Signs: Vital Signs Temperature 96.1 F L 11/23/17 22:11 Pulse Rate 63 11/24/17 06:00 Respiratory Rate 18 11/24/17 06:00 Blood Pressure 94/52 11/24/17 06:00 O2 Sat by Pulse Oximetry (%) Pertinent Admission Physical Exam Findings: withdrawal sx - Medication Discharge Medications: Ambulatory Orders Propranolol HCl 10 mg PO BID 08/31/17 Buspirone HCl [Buspar -] 10 mg PO DAILY #30 tablet 11/21/17 Divalproex [Depakote -] 500 mg PO HS #30 tablet.ec 11/21/17 Quetiapine Fumarate [Seroquel -] 100 mg PO HS #30 tablet 11/21/17 - AMA Did Patient Leave Against Medical Advice: Yes
[2017-11-25] MEDS ORDERED: METHADONE HCL 5 MG TABLET (FOR DETOX USE ONLY) PO ONE (06:00)
== END 2017-11-24 11:32 | disposition left against medical advice (07) | DRG 770 ==
LOC: YASAS 14:21 → Y6N 18:43
PROVIDERS: ADMIT Internal Medicine; ATTEND Internal Medicine
PROC: HZ2ZZZZ Detoxification Services for Substance Abuse Treatment (ICD-10-PCS; principal; 2017-11-20)
DX: F11.23 Opioid dependence with withdrawal (principal); F13.20 Sedative, hypnotic or anxiolytic dependence, uncomplicated; F12.20 Cannabis dependence, uncomplicated; F17.213 Nicotine dependence, cigarettes, with withdrawal; F31.89 Other bipolar disorder; F25.9 Schizoaffective disorder, unspecified; F98.8 Other specified behavioral and emotional disorders with onset usually occurring in childhood and adolescence; G47.00 Insomnia, unspecified; K59.00 Constipation, unspecified; M54.5 Low back pain; L72.0 Epidermal cyst
CPT/HCPCS: 36415; 80053; 81003; 85027; 86593; 87389; 93005; 93010

== ENCOUNTER 2018-05-08 18:20 | Inpatient (IN) | payer OTHER ==
[2018-05-08 23:58] VITALS: BMI 26.3
--- NOTE | 2018-05-09 01:27 | HP ---
COWS - Scale Resting Pulse: 0= [place] 80 or Below Sweatin=Flushed/Facial Moisture Restless Observation: 5= Unable to Sit Still Pupil Size: 0= Normal to Room Light Bone or Joint Aches: 4=Acute Joint/Muscle Pain Runny Nose/ Eye Tearin= Runny Nose/Eyes GI Upset > 30mins: 2= Nausea/Diarrhea Tremor Observation: 2= Slight Tremor Visible Yawning Observation: 1= 1-2x During Session Anxiety or Irritability: 2=Irritable/Anxious Goose Flesh Skin: 0=Smooth Skin COWS Score: 20 CIWA Score - CIWA Score Nausea/Vomitin Muscle Tremors: 3 Anxiety: 4-Mod. Anxious/Guarded Agitation: 4-Moderately Restless Paroxysmal Sweats: No Perspiration Orientation: 1-Uncertain about Date Tacttile Disturbances: 0-None Auditory Disturbances: 0-None Visual Disturbances: 0-None Headache: 2-Mild CIWA-Ar Total Score: 17 Admission ROS BHS - HPI Chief Complaint: C/O WITHDRAWAL SX'S. SEEKING DETOX TXMENT Allergies/Adverse Reactions: Allergies Allergy/AdvReac Type Severity Reaction Status Date / Time haloperidol [From Haldol] Allergy Severe Difficulty Verified 02/21/18 20:24 Breathing haloperidol lactate Allergy Severe Difficulty Verified 02/21/18 20:24 [From Haldol] Breathing olanzapine [From Zyprexa] Allergy Severe Verified 02/21/18 20:24 Shellfish Allergy Severe Itching Verified 02/21/18 20:24 History of Present Illness: 27 Y.O. MALE WITH HEROIN AND XANAX DEPENDENCE HERE FOR DETOX. CLIENT IS KNOWN TO THIS PROGRAM. LAST HERE NOVEMBER 2017. SELF REFERRED HE STATES "I NEED THE HELP" DENIES ANY SIGNIFICANT PERIOD OF CLEAN TIME. WAS PRESCRIBED SBX MGMT BUT HAS SINCE CEASED DUE TO ONGOING USE. LAST RX 02/2018. REPORT HX/O MANY OVERDOSE AND WITHDRAWAL SX'S SEE COWS/CIWA. DENIES PAST/PRESENT HX/O SI/HI, C.P., SOB, AVH, SEIZURE D/O PMHX: DENIES PSYCH: INSOMNIA, BORDERLINE PERSONALITY D/O, ANXIETY Exam Limitations: No Limitations - Ebola screening Have you traveled outside of the country in the last 21 days: No Have you had contact with anyone from an Ebola affected area: No Do you have a fever: No - Review of Systems Constitutional: Chills, Malaise, Night Sweats, Changes in sleep EENT: reports: No Symptoms Reported Respiratory: reports: No Symptoms reported Cardiac: reports: No Symptoms Reported GI: reports: Diarrhea, Abdominal cramping : reports: No Symptoms Reported Musculoskeletal: reports: Back Pain, Joint Pain, Other (MALAISE) Integumentary: reports: No Symptoms Reported Neuro: reports: No Symptoms reported Endocrine: reports: No Symptoms Reported Hematology: reports: No Symptoms Reported Psychiatric: reports: Anxious, Depressed Other Systems: Reviewed and Negative Patient History - Patient Medical History Hx Anemia: No Hx Asthma: No Hx Chronic Obstructive Pulmonary Disease (COPD): No Hx Cancer: No Hx Cardiac Disorders: No Hx Congestive Heart Failure: No Hx Hypertension: No Hx Hypercholesterolemia: No Hx Pacemaker: No HX Cerebrovascular Accident: No Hx Seizures: No Hx Dementia: No Hx Diabetes: No Hx Gastrointestinal Disorders: No Hx Liver Disease: No Hx Genitourinary Disorders: No Hx Sexually Transmitted Disorders: No Hx Renal Disease (ESRD): No Hx Thyroid Disease: No Hx Human Immunodeficiency Virus (HIV): No Hx Hepatitis C: No Hx Depression: No Hx Suicide Attempt: No Hx Bipolar Disorder: No Hx Schizophrenia: No Other Medical History: ANXIETY, BORDERLINE PERSONALITY D/O, INSOMNIA - Patient Surgical History Past Surgical History: No Hx Neurologic Surgery: No Hx Cataract Extraction: No Hx Cardiac Surgery: No Hx Lung Surgery: No Hx Breast Surgery: No Hx Breast Biopsy: No Hx Abdominal Surgery: No Hx Appendectomy: No Hx Cholecystectomy: No Hx Genitourinary Surgery: No Hx Section: No Hx Orthopedic Surgery: No Anesthesia Reaction: No - PPD History Previous Implant?: Yes Documented Results: Negative w/proof Implanted On Prior [facility] Admission?: Yes Date: 09/02/17 Results: 0mm PPD to be Administered?: No - Smoking Cessation Smoking history: Former smoker Have you smoked in the past 12 months: Yes Aproximately how many cigarettes per day: 20 If you are a former smoker, when did you quit?: 1 MONTH AGO Cigars Per Day: 0 Hx Chewing Tobacco Use: No Initiated information on smoking cessation: Yes 'Breaking Loose' booklet given: 05/09/18 - Substance & Tx. History Hx Alcohol Use: No Hx Substance Use: Yes Substance Use Type: Heroin, Tranquilizers (XANAX) Hx Substance Use Treatment: Yes ([facility]) - Substances Abused HEROIN Route: Inhalation Frequency: Daily Amount used: 10 Age of first use: 15 Date of Last Use: 05/08/18 XANAX Route: Oral Frequency: 1-2 times per week Amount used: 1 MG Age of first use: 27 Date of Last Use: 05/08/18 THC Route: Smoking Frequency: 1-2 times per week Amount used: 1 PULL Age of first use: 12 Date of Last Use: 05/08/18 Family Disease History - Family Disease History Family Disease History: Heart Disease: Father, Other: Mother (ANXIETY, DEPRESSION) Admission Physical Exam [facility] - Vital Signs Vital Signs: Vital Signs - 24 hr 05/08/18 23:57 Temperature 97.7 F Pulse Rate 72 Respiratory 18 Rate Blood Pressure 120/83 - Physical General Appearance: Yes: Appropriately Dressed, Mild Distress, Tremorous (FELT) , Anxious, Other HEENTM: Yes: EOMI, Normocephalic, Normal Voice, B[place]O, Pharynx Normal, Rhinorrhea Respiratory: Yes: Chest Non-Tender, Lungs Clear, Normal Breath Sounds, No Respiratory Distress, No Accessory Muscle Use Neck: Yes: No masses,lesions,Nodules, Supple, Trachea in good position Breast: Yes: Breast Exam Deferred Cardiology: Yes: Regular Rhythm, Regular Rate, S1, S2 Abdominal: Yes: Non Tender, Soft, Increased Bowel Sounds Genitourinary: Yes: Other (NO C/O) Back: Yes: Normal Inspection Musculoskeletal: Yes: full range of Motion, Gait Steady Extremities: Yes: Normal Capillary Refill, Normal Range of Motion, Non-Tender, Tremors (FELT) Neurological: Yes: Fully Oriented, Alert, Disoriented (DATE) Integumentary: Yes: Dry, Warm Lymphatic: Yes: Within Normal Limits - Diagnostic (1) Sedative, hypnotic or anxiolytic abuse, uncomplicated Current Visit: Yes Status: Acute (2) Former cigarette smoker Current Visit: Yes Status: Acute Comment: LAST USE 1 MONTH AGO (3) Insomnia Current Visit: Yes Status: Active (4) Opioid dependence with withdrawal Current Visit: Yes Status: Acute (5) Cannabis dependence Current Visit: Yes Status: Chronic Cleared for Admission [facility] - Detox or Rehab [facility] Level of Care: Medically Managed Detox Regimen/Protocol: Methadone Claeared for Rehab Admission: No S Breath Alcohol Content Breath Alcohol Content: 0 Urine Drug Screen - Results Drug Screen Negative: No Urine Drug Screen Results: THC-Marijuana, OPI-Opiates, BZO-Benzodiazepines, TCA- Tricyclic Antidepress, OXY-Oxycodone
[2018-05-09] MEDS ORDERED: ACETAMINOPHEN 325 MG TABLET (FP) PO PRN (01:41)
[2018-05-09] MEDS ORDERED: MAG HYDROX/AL HYDROX/SIMETH 30 ML UNIT-DOSE CUP PO PRN (01:41)
[2018-05-09] MEDS ORDERED: LOPERAMIDE HCL 2 MG CAPSULE PO PRN (01:41)
[2018-05-09] MEDS ORDERED: MENTHOL/PHENOL 1 EACH UD MM PRN (01:41)
[2018-05-09] MEDS ORDERED: guaiFENesin/D-METHORPHAN HB 10 ML UNIT-DOSE CUPS PO PRN (01:41)
[2018-05-09] MEDS ORDERED: IBUPROFEN 400 MG TABLET (FP) PO PRN (01:41)
[2018-05-09] MEDS ORDERED: NICOTINE POLACRILEX 2 MG GUM BUC PRN (01:41)
[2018-05-09] MEDS ORDERED: P-EPHED 60MG/TRIPROLIDI 2.5MG TABLET PO PRN (01:41)
[2018-05-09] MEDS ORDERED: MAGNESIUM HYDROX 2400MG/30ML ORAL SUSPENSION 30 ML CUP PO PRN (01:41)
[2018-05-09] MEDS ORDERED: MAGNESIUM CITRATE 300 ML BOTTLE PO PRN (01:41)
[2018-05-09] MEDS ORDERED: METHADONE HCL 10 MG TABLET (FOR DETOX USE ONLY) PO ONE ×3 (01:41→23:00)
[2018-05-09] MEDS: diazePAM 5 MG TABLET PO PRN ×2 (02:51→10:40)
[2018-05-09] MEDS ORDERED: PRENATAL VITAMINS W/ FOLIC ACID TABLET (FP) PO SCH (10:00)
[2018-05-09 10:53] VITALS: BP 112/67; PULSE 67; TEMP 98
[2018-05-09 10:54] LABS: ALBUMIN 3.6 g/dl (3.4-5.0); ANION GAP 6 MMOL/L (8-16); BLOOD UREA NITROGEN 12 mg/dL (7-18); CHLORIDE 104 mmol/L (98-107); CO2 31 mmol/L (21-32); GLUCOSE,RANDOM 81 mg/dL (74-106); SGOT/AST 15 U/L (15-37); SGPT/ALT 16 U/L (12-78); SODIUM 141 mmol/L (136-145)
[2018-05-09 10:56] LABS: ALK PHOS 107 U/L (45-117); BILIRUBIN,TOTAL 0.5 mg/dL (0.2-1.0); CALCIUM 8.9 mg/dL (8.5-10.1); CREATININE 0.7 mg/dL (0.7-1.3); TOT PROT 6.4 g/dl (6.4-8.2)
[2018-05-09 11:44] LABS: HEMOGLOBIN 12.7 GM/dL (11.7-16.9); MCH 27.9 pg (25.7-33.7); MCHC 33.5 g/dl (32.0-35.9); MEAN CELL VOLUME 83.3 fl (80-96); MEAN PLT VOLUME 8.1 fl (7.5-11.1); PLATELET COUNT 248 K/MM3 (134-434); RBC 4.56 M/mm3 (4.00-5.60); RDW 13.6 % (11.9-15.9); WHITE BLOOD COUNT 10.3 K/mm3 (4.0-10.0)
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
--- NOTE | 2018-05-09 12:26 | PN ---
[facility] Progress Note Note: PT WAS ADMITTED EARLIER TODAY. ALERT O X 3. PT WAS SEEN OOB AMBULATING WITH STEADY GAIT, C/O ANXIETY. CONTINUE DETOX/MONITOR PT Vital Signs 05/09/18 05/09/18 06:33 10:52 Temperature 97.9 F 98.0 F Pulse Rate 71 67 Respiratory 18 18 Rate Blood Pressure 107/55 112/67 Laboratory Tests 05/09/18 05/09/18 06:00 06:00 WBC 10.3 H RBC 4.56 Hgb 12.7 Hct 38.0 MCV 83.3 MCH 27.9 MCHC 33.5 RDW 13.6 Plt Count 248 D MPV 8.1 D Sodium 141 Potassium 4.0 Chloride 104 Carbon Dioxide 31 Anion Gap 6 L BUN 12 Creatinine 0.7 Creat Clearance w eGFR > 60 Random Glucose 81 Calcium 8.9 Total Bilirubin 0.5 AST 15 D ALT 16 D Alkaline Phosphatase 107 Total Protein 6.4 Albumin 3.6
--- NOTE | 2018-05-09 13:47 | EKG ---
Test Reason : Blood Pressure : / mmHG Vent. Rate : 057 BPM Atrial Rate : 057 BPM P-R Int : 142 ms QRS Dur : 092 ms QT Int : 446 ms P-R-T Axes : 049 022 036 degrees QTc Int : 434 ms SINUS BRADYCARDIA WITH MARKED SINUS ARRHYTHMIA OTHERWISE NORMAL ECG WHEN COMPARED WITH ECG OF 20-NOV-2017 20:51, NO SIGNIFICANT CHANGE WAS FOUND Confirmed by ELOISE REID MD ([id number]) on 05/09/2018 1:47:23 PM Referred By: Confirmed By:ELOISE REID MD
--- NOTE | 2018-05-09 14:55 | DS ---
[facility] Detox Discharge Summary Admission Date: 05/08/18 Discharge Date: 05/09/18 - History Present History: Cannabis Dependence, Opioid Dependence, Sedative Dependence Additional Comments: PT DECLINED TO CONTINUE WITH DETOX FOR PERSONAL REASONS. THIS CONFERENCE PLANNER,COUNSELORS AND NURSE SPOKE TO PT AND ENCOURAGED TREATMET BUT WAS UNSUCCESSFUL. PT IS ALERT O X 3. NAD. NO S/I OR H/I VERBALIZED. Pertinent Past History: PLEASE SEE DX BELOW - Physical Exam Results Vital Signs: Vital Signs Temperature 98.0 F 05/09/18 10:52 Pulse Rate 67 05/09/18 10:52 Respiratory Rate 18 05/09/18 10:52 Blood Pressure 112/67 05/09/18 10:52 O2 Sat by Pulse Oximetry (%) Pertinent Admission Physical Exam Findings: WITHDRAWAL SX Laboratory Tests 05/09/18 05/09/18 06:00 06:00 WBC 10.3 H RBC 4.56 Hgb 12.7 Hct 38.0 MCV 83.3 MCH 27.9 MCHC 33.5 RDW 13.6 Plt Count 248 D MPV 8.1 D Sodium 141 Potassium 4.0 Chloride 104 Carbon Dioxide 31 Anion Gap 6 L BUN 12 Creatinine 0.7 Creat Clearance w eGFR > 60 Random Glucose 81 Calcium 8.9 Total Bilirubin 0.5 AST 15 D ALT 16 D Alkaline Phosphatase 107 Total Protein 6.4 Albumin 3.6 - Treatment Hospital Course: Discharged Condition Good - Medication Discharge Medications: Ambulatory Orders Propranolol HCl 10 mg PO BID 08/31/17 Quetiapine Fumarate [Seroquel -] 100 mg PO HS #30 tablet 11/21/17 Buspirone HCl [Buspar -] 15 mg PO DAILY 02/21/18 Gabapentin [Neurontin -] 400 mg PO Q8H 02/21/18 Hydroxyzine HCl 50 mg PO BID 02/21/18 Varenicline Tartrate [Chantix] 0.5 mg PO DAILY 02/21/18 - Diagnosis (1) Cannabis dependence Status: Acute (2) Nicotine dependence Status: Acute Qualifiers: Nicotine product type: cigarettes Substance use status: in withdrawal Qualified Code(s): F17.213 - Nicotine dependence, cigarettes, with withdrawal (3) Opioid dependence with withdrawal Status: Acute (4) Sedative, hypnotic or anxiolytic abuse, uncomplicated Status: Acute - AMA Did Patient Leave Against Medical Advice: Yes (AMA)
[2018-05-09] MEDS ORDERED: MELATONIN 5 MG TABLETS PO PRN (22:00)
[2018-05-09] MEDS ORDERED: THIAMINE HCL 100 MG TABLET (FP) PO SCH (22:00)
[2018-05-10] MEDS ORDERED: METHADONE HCL 10 MG TABLET (FOR DETOX USE ONLY) PO ONE (10:00)
[2018-05-11] MEDS ORDERED: METHADONE HCL 5 MG TABLET (FOR DETOX USE ONLY) PO ONE (10:00)
[2018-05-12] MEDS ORDERED: METHADONE HCL 5 MG TABLET (FOR DETOX USE ONLY) PO ONE (10:00)
[2018-05-13] MEDS ORDERED: METHADONE HCL 10 MG TABLET (FOR DETOX USE ONLY) PO ONE (10:00)
[2018-05-14] MEDS ORDERED: METHADONE HCL 5 MG TABLET (FOR DETOX USE ONLY) PO ONE (06:00)
== END 2018-05-09 12:55 | disposition left against medical advice (07) | DRG 770 ==
LOC: YASAS 18:20 → Y3N 23:14
PROC: HZ2ZZZZ Detoxification Services for Substance Abuse Treatment (ICD-10-PCS; principal; 2018-05-08)
DX: F11.23 Opioid dependence with withdrawal (principal); F13.10 Sedative, hypnotic or anxiolytic abuse, uncomplicated; F12.20 Cannabis dependence, uncomplicated; F39 Unspecified mood [affective] disorder; F98.8 Other specified behavioral and emotional disorders with onset usually occurring in childhood and adolescence; F60.9 Personality disorder, unspecified; G47.00 Insomnia, unspecified; Z87.891 Personal history of nicotine dependence; Z88.8 Allergy status to other drugs, medicaments and biological substances; Z91.013 Allergy to seafood
CPT/HCPCS: 36415; 80053; 85027; 86593; 93005; 93010